=== PATIENT | female | born 1935 | race Caucasian/White ===

== ENCOUNTER 2017-04-05 16:09 | Inpatient (IN) | payer MEDICARE ==
[2017-04-05] MEDS ORDERED: ALBUTEROL NEBULIZED 2.5 MG/3 ML INHALATION STA (16:16)
[2017-04-05] MEDS ORDERED: IPRATROPIUM 0.5 MG/2.5 ML NEBU INHALATION STA (16:17)
--- NOTE | 2017-04-05 17:02 | ED ---
General Adult HPI - General Chief complaint: Shortness of Breath Stated complaint: Diff Breathing Time Seen by Provider: 04/05/17 16:13 Source: patient, EMS, RN notes reviewed Mode of arrival: EMS Limitations: no limitations - History of Present Illness Initial comments: 82-year-old female presents with a one-month history of worsening dyspnea. Patient also reports cough. Denies central chest pain. Patient has history of congestive heart failure, COPD, recurrent pleural effusions, A. fib. Patient has been taking breathing treatments at home with minimal relief. According to EMS, she was on BiPAP which was her neighbors at the time of their arrival. Oxygen saturation in the low 90s. Patient denies fever. Denies new productive cough. Denies central chest pain. - Related Data Home Medications Medication Instructions Recorded Confirmed ALPRAZolam [Xanax] 0.25 mg PO Q6HR 04/05/17 04/05/17 Albuterol Inhaler [Ventolin Hfa 1 - 2 puff INHALATION RT-Q4H PRN 04/05/17 Inhaler] Alpha Lipoic Acid 100 mg PO BID 04/05/17 04/05/17 Ascorbic Acid [Vitamin C] 500 mg PO DAILY 04/05/17 04/05/17 Aspirin 325 mg PO DAILY 04/05/17 04/05/17 Digoxin [Digitek] 125 mcg PO DAILY 04/05/17 04/05/17 Diltiazem HCl [Diltiazem 24Hr ER] 300 mg PO DAILY 04/05/17 04/05/17 Famotidine 20 mg PO DAILY 04/05/17 04/05/17 Fluticasone/Vilanterol [Breo 1 puff INHALATION RT-DAILY 04/05/17 04/05/17 Ellipta 200-25 Mcg INH] Furosemide [Lasix] 40 mg PO BID 04/05/17 04/05/17 Ipratropium-Albuterol Nebulize 3 ml INHALATION RT-Q4H 04/05/17 04/05/17 [Duoneb 0.5 mg-3 mg/3 ml Soln] Lidocaine 5% Patch [Lidoderm] 1 patch TOPICAL DAILY 04/05/17 04/05/17 Metoprolol Tartrate [Lopressor] 25 mg PO BID 04/05/17 04/05/17 Spironolactone [Aldactone] 25 mg PO DAILY 04/05/17 04/05/17 Thyroid,Pork [[place] Thyroid] 60 mg PO DAILY 04/05/17 04/05/17 Allergies Allergy/AdvReac Type Severity Reaction Status Date / Time egg Allergy Unknown Verified 04/05/17 16:32 tetracycline Allergy Unknown Verified 04/05/17 16:32 Review of Systems ROS Statement: Those systems with pertinent positive or pertinent negative responses have been documented in the HPI. ROS Other: All systems not noted in ROS Statement are negative. Past Medical History Past Medical History: Atrial Fibrillation, Cancer, Heart Failure, COPD History of Any Multi-Drug Resistant Organisms: None Reported Past Surgical History: Tubal Ligation Past Psychological History: No Psychological Hx Reported Smoking Status: Former smoker Past Alcohol Use History: None Reported Past Drug Use History: None Reported General Exam Limitations: no limitations General appearance: alert, in distress Head exam: Present: atraumatic, normocephalic Eye exam: Present: normal appearance, PERRL ENT exam: Present: normal exam Neck exam: Present: normal inspection. Absent: tenderness, meningismus Respiratory exam: Present: wheezes, decreased breath sounds (On the right), prolonged expiratory Cardiovascular Exam: Present: regular rate, normal rhythm GI/Abdominal exam: Present: soft. Absent: distended, tenderness Extremities exam: Present: normal inspection, pedal edema (trace) Neurological exam: Present: alert, oriented X3. Absent: motor sensory deficit Psychiatric exam: Present: normal affect, normal mood Skin exam: Present: warm, dry, intact. Absent: cyanosis, diaphoretic Course Vital Signs 04/05/17 04/05/17 04/05/17 16:12 16:20 16:30 Temperature 99.8 F H Pulse Rate 96 90 Respiratory 20 20 Rate Blood Pressure 168/115 O2 Sat by Pulse 93 L Oximetry 04/05/17 04/05/17 16:44 17:58 Temperature Pulse Rate 95 83 Respiratory 20 Rate Blood Pressure 150/67 O2 Sat by Pulse 93 L Oximetry EKG Findings - EKG Comments: EKG Findings:: EKG obtained at 1613 shows a 2 fibrillation with RVR, ventricular rate 106, castration 88, QTC 390, no ST segment elevation. Repeat EKG at 1802 shows atrial fibrillation, ventricular rate 86, QRS duration 86, QTC 368, no ST segment elevation Medical Decision Making - Medical Decision Making 82-year-old female presents with dyspnea and cough. Patient does have wheezing on bilateral lung mcclain, decreased breath sounds in the right. No blood cell count 8.5 which is normal, stable hemoglobin 12.7, troponin negative, BNP is 618. Chest x-ray shows large right-sided pleural effusion as well as right- sided consolidation concerning for neoplasm. Patient does have history of lung cancer. No focal pneumonia in the left lung field, no pulmonary vascular congestion. Patient has had drainage of the pleural effusion as recently as 2 weeks ago. After breathing treatment, she is still quite dyspneic requiring supplemental oxygen. She will be admitted for treatment of her current pleural effusion, COPD. Pulmonology will be placed on consult. Diagnosis: Pleural effusion, lung cancer, COPD - Lab Data Result diagrams: 04/05/17 16:52 04/05/17 16:52 Lab Results 04/05/17 04/05/17 04/05/17 Range/Units 16:52 16:52 16:52 WBC 8.5 (3.8-10.6) k/uL RBC 4.48 (3.80-5.40) m/uL Hgb 12.7 (11.4-16.0) gm/dL Hct 39.8 (34.0-46.0) % MCV 88.9 (80.0-100.0) fL MCH 28.3 (25.0-35.0) pg MCHC 31.9 (31.0-37.0) g/dL RDW 14.8 (11.5-15.5) % Plt Count 282 (150-450) k/uL Neutrophils % 75 % Lymphocytes % 13 % Monocytes % 6 % Eosinophils % 5 % Basophils % 0 % Neutrophils # 6.4 (1.3-7.7) k/uL Lymphocytes # 1.1 (1.0-4.8) k/uL Monocytes # 0.5 (0-1.0) k/uL Eosinophils # 0.4 (0-0.7) k/uL Basophils # 0.0 (0-0.2) k/uL PT (9.0-12.0) sec INR (<1.2) APTT (22.0-30.0) sec Sodium 134 L (137-145) mmol/L Potassium 4.1 (3.5-5.1) mmol/L Chloride 94 L (98-107) mmol/L Carbon Dioxide 35 H (22-30) mmol/L Anion Gap 5 mmol/L BUN 17 (7-17) mg/dL Creatinine 0.81 (0.52-1.04) mg/dL Est GFR (MDRD) Af Amer >60 (>60 ml/min/1.73 sqM) Est GFR (MDRD) Non-Af >60 (>60 ml/min/1.73 sqM) Glucose 132 H (74-99) mg/dL Calcium 9.6 (8.4-10.2) mg/dL Magnesium 2.0 (1.6-2.3) mg/dL Total Bilirubin 0.5 (0.2-1.3) mg/dL AST 20 (14-36) U/L ALT 31 (9-52) U/L Alkaline Phosphatase 71 (38-126) U/L Total Creatine Kinase <20 L (30-135) U/L CK-MB (CK-2) 0.6 (0.0-2.4) ng/mL CK-MB (CK-2) Rel Index Troponin I 0.017 (0.000-0.034) ng/mL NT-Pro-B Natriuret Pep pg/mL Total Protein 5.7 L (6.3-8.2) g/dL Albumin 3.1 L (3.5-5.0) g/dL 04/05/17 04/05/17 Range/Units 16:52 16:52 WBC (3.8-10.6) k/uL RBC (3.80-5.40) m/uL Hgb (11.4-16.0) gm/dL Hct (34.0-46.0) % MCV (80.0-100.0) fL MCH (25.0-35.0) pg MCHC (31.0-37.0) g/dL RDW (11.5-15.5) % Plt Count (150-450) k/uL Neutrophils % % Lymphocytes % % Monocytes % % Eosinophils % % Basophils % % Neutrophils # (1.3-7.7) k/uL Lymphocytes # (1.0-4.8) k/uL Monocytes # (0-1.0) k/uL Eosinophils # (0-0.7) k/uL Basophils # (0-0.2) k/uL PT 9.8 (9.0-12.0) sec INR 1.0 (<1.2) APTT 21.5 L (22.0-30.0) sec Sodium (137-145) mmol/L Potassium (3.5-5.1) mmol/L Chloride (98-107) mmol/L Carbon Dioxide (22-30) mmol/L Anion Gap mmol/L BUN (7-17) mg/dL Creatinine (0.52-1.04) mg/dL Est GFR (MDRD) Af Amer (>60 ml/min/1.73 sqM) Est GFR (MDRD) Non-Af (>60 ml/min/1.73 sqM) Glucose (74-99) mg/dL Calcium (8.4-10.2) mg/dL Magnesium (1.6-2.3) mg/dL Total Bilirubin (0.2-1.3) mg/dL AST (14-36) U/L ALT (9-52) U/L Alkaline Phosphatase (38-126) U/L Total Creatine Kinase (30-135) U/L CK-MB (CK-2) (0.0-2.4) ng/mL CK-MB (CK-2) Rel Index Troponin I (0.000-0.034) ng/mL NT-Pro-B Natriuret Pep 618 pg/mL Total Protein (6.3-8.2) g/dL Albumin (3.5-5.0) g/dL Disposition Clinical Impression: Pleural effusion, Acute exacerbation of chronic obstructive airways disease Disposition: ADMITTED IP TO THIS [facility] Condition: Stable Referrals: Vernell Plummer MD [Primary Care Provider] - 1-2 days Decision to Admit Reason: Admit from EC Decision Date: 04/05/17 Decision Time: 18:38
[2017-04-05 17:05] LABS: Basophils % (A) 0 %; CH 28.9; CHCM 32.8; Eosinophils # (A) 0.4 k/uL (0-0.7); Eosinophils % (A) 5 %; HCT 39.8 % (34.0-46.0); HDW 2.99; HGB 12.7 gm/dL (11.4-16.0); Luc % (Auto) 1; Lymphocytes # (A) 1.1 k/uL (1.0-4.8); Lymphocytes % (A) 13 %; MCH 28.3 pg (25.0-35.0); MCHC 31.9 g/dL (31.0-37.0); MCV 88.9 fL (80.0-100.0); Mean Platelet Volume 7.2; Monocytes # (A) 0.5 k/uL (0-1.0); Monocytes % (A) 6 %; Neutrophils # (A) 6.4 k/uL (1.3-7.7); Neutrophils % (A) 75 %; RBC 4.48 m/uL (3.80-5.40); RDW 14.8 % (11.5-15.5); WBC 8.5 k/uL (3.8-10.6); WBC (Perox) 9.25
[2017-04-05 17:12] LABS: ALT 31 U/L (9-52); AST 20 U/L (14-36); Alkaline Phosphatase 71 U/L (38-126); Anion Gap 5 mmol/L; Blood Urea Nitrogen 17 mg/dL (7-17); Calcium 9.6 mg/dL (8.4-10.2); Carbon Dioxide 35 mmol/L (22-30); Chloride 94 mmol/L (98-107); Glucose 132 mg/dL (74-99); Non-African American GFR(MDRD) >60 (>60 ml/min/1.73 sqM); Potassium 4.1 mmol/L (3.5-5.1); Sodium 134 mmol/L (137-145); Total Bilirubin 0.5 mg/dL (0.2-1.3); Total Protein 5.7 g/dL (6.3-8.2)
--- NOTE | 2017-04-05 17:18 | XR ---
EXAMINATION TYPE: XR chest 2V DATE OF EXAM: 04/05/2017 COMPARISON: 08/22/2011 HISTORY: Shortness of breath with known right lung cancer. TECHNIQUE: Frontal and lateral views of the chest are obtained. FINDINGS: There is a moderate layering right pleural effusion, right perihilar enlargement, right ba silar opacity and right apical opacity. Right apical opacity is thought to represent the patient's un derlying known lung cancer. Additionally there appears to be postobstructive at least segmental right upper lobe collapse on the lateral image. Left lung remains clear other than scattered areas of line ar peripheral subsegmental atelectasis. Cardiomediastinal silhouette is obscured but overall nonenlar ged. Patient's chin obscures the lung apices. Evaluation for pneumothorax is limited. IMPRESSION: 1. New moderate right pleural effusion and right basilar airspace disease that may represent atelecta sis or pneumonia in the appropriate clinical setting. 2. Right upper lobe masslike consolidation favored to represent the patient's underlying known neopla sm with evidence of postobstructive at least subsegmental atelectasis. 3. Right hilar prominence likely related to adenopathy.
[2017-04-05 17:21] LABS: Creatine Kinase <20 U/L (30-135)
[2017-04-05 17:25] LABS: Prothrombin Time 9.8 sec (9.0-12.0)
[2017-04-05 17:26] LABS: Partial Thromboplastin Time 21.5 sec (22.0-30.0)
[2017-04-05 17:34] LABS: Creatine Kinase MB 0.6 ng/mL (0.0-2.4); Troponin I 0.017 ng/mL (0.000-0.034)
[2017-04-05] MEDS ORDERED: MORPHINE SULFATE 4 MG/ML SYRINGE IVP STA (18:32)
[2017-04-05] MEDS ORDERED: NALOXONE 0.4 MG/ML 1 ML VIAL IV PRN ×2 (18:33→21:08)
[2017-04-05 20:07] VITALS: BMI 36.2
[2017-04-05] MEDS ORDERED: ONDANSETRON 4 MG/2 ML VIAL IVP PRN (21:08)
[2017-04-05] MEDS ORDERED: ACETAMINOPHEN TAB 325 MG TAB PO PRN (21:08)
--- NOTE | 2017-04-05 21:40 | P.HPIM ---
History of Present Illness H&P Date: 04/05/17 Chief Complaint: Shortness of breath 82-year-old female presents with progressively worsening dyspnea. Last December she was told she had a ''spot'' on her lung, the suspicious spot was not investigated with any biopsy at that time because patient elected not to undergo any chemotherapy or radiation treatment. She normally gets her medical care at [facility] in [place]. Last December she had a procedure to drain some fluid off of her right chest. She tried to make an appointment with Dr. Landaverde but he did not have any availability for new patients until next month and shortness of breath continued to get worse and that is why she came into the emergency department. The shortness of breath is associated with right upper chest pain that radiates to the right side of her neck. The pain is sharp in quality, severe 10 out of 10 in severity, it gets worse with deep breathing. Patient has history of congestive heart failure, COPD, and normally she is on 3 L of home oxygen 09/12. Patient has been taking breathing treatments at home with minimal relief. She also at baseline uses BiPAP at night. Patient denies fever or chills. She has some nausea but no vomiting. No recent sick contacts or flulike symptoms. Denies new productive cough. Denies central chest pain. In the ER her oxygen saturations were in the low 90s. Review of Systems 12 point ROS performed, negative except HPI. Past Medical History Past Medical History: Atrial Fibrillation, Cancer, Heart Failure, COPD, Thyroid Disorder History of Any Multi-Drug Resistant Organisms: None Reported Past Surgical History: Tubal Ligation Past Anesthesia/Blood Transfusion Reactions: No Reported Reaction Past Psychological History: No Psychological Hx Reported Smoking Status: Former smoker Past Alcohol Use History: None Reported Past Drug Use History: None Reported - Past Family History Father Family Medical History: Myocardial Infarction (MS) Additional Family Medical History / Comment(s): emphysema Mother Family Medical History: Congestive Heart Failure (CHF), CVA/TIA Brother(s) Family Medical History: Diabetes Mellitus Medications and Allergies Home Medications Medication Instructions Recorded Confirmed Type ALPRAZolam [Xanax] 0.25 mg PO Q6HR 04/05/17 04/05/17 History Albuterol Inhaler [Ventolin Hfa 1 - 2 puff INHALATION RT-Q4H PRN 04/05/17 History Inhaler] Alpha Lipoic Acid 100 mg PO BID 04/05/17 04/05/17 History Ascorbic Acid [Vitamin C] 500 mg PO DAILY 04/05/17 04/05/17 History Aspirin 325 mg PO DAILY 04/05/17 04/05/17 History Digoxin [Digitek] 125 mcg PO DAILY 04/05/17 04/05/17 History Diltiazem HCl [Diltiazem 24Hr ER] 300 mg PO DAILY 04/05/17 04/05/17 History Famotidine 20 mg PO DAILY 04/05/17 04/05/17 History Fluticasone/Vilanterol [Breo 1 puff INHALATION RT-DAILY 04/05/17 04/05/17 History Ellipta 200-25 Mcg INH] Furosemide [Lasix] 40 mg PO BID 04/05/17 04/05/17 History Ipratropium-Albuterol Nebulize 3 ml INHALATION RT-Q4H 04/05/17 04/05/17 History [Duoneb 0.5 mg-3 mg/3 ml Soln] Lidocaine 5% Patch [Lidoderm] 1 patch TOPICAL DAILY 04/05/17 04/05/17 History Metoprolol Tartrate [Lopressor] 25 mg PO BID 04/05/17 04/05/17 History Spironolactone [Aldactone] 25 mg PO DAILY 04/05/17 04/05/17 History Thyroid,Pork [[place] Thyroid] 60 mg PO DAILY 04/05/17 04/05/17 History Allergies Allergy/AdvReac Type Severity Reaction Status Date / Time egg Allergy Unknown Verified 04/05/17 16:32 tetracycline Allergy Unknown Verified 04/05/17 16:32 Physical Exam Vitals: Vital Signs Temp Pulse Resp BP Pulse Ox 04/05/17 19:29 98.7 F 85 18 148/80 95 04/05/17 19:07 98.7 F 82 20 140/60 95 04/05/17 17:58 83 20 150/67 93 L 04/05/17 16:44 95 04/05/17 16:30 20 04/05/17 16:20 90 04/05/17 16:12 99.8 F H 96 20 168/115 93 L Intake and Output 04/05/17 04/05/17 04/05/17 06:59 14:59 22:59 Other: Weight 87.09 kg Patient Weight 04/06/17 06:59 Weight 87.09 kg Constitutional: Moderate respiratory distress, unable to finish full sentences, conversant, pleasant Eyes:Anicteric sclerae, moist conjunctiva, no lid-lag, PERRLA, ENMT: Oropharynx clear, no erythema, exudates Neck: Supple, FROM, no masses, or JVD, No carotid bruits, No thyromegaly Lungs: Diminished breath sounds on the right lower chest, dull to percussion on the right lower chest, increased respiratory effort, + accessory muscle use Cardiovascular: Irregularly irregular, normal rate, No murmurs, gallops, or rubs , No peripheral edema Abdominal: Soft, Nontender, no guarding, rebound or rigidity, Normoactive bowel sounds, No hepatomegaly, No splenomegaly, No palpable mass Skin: Normal temperature, tone, texture, turgor, no induration, No subcutaneous nodules, No rash, lesions, No ulcers Extremities: No digital cyanosis, No clubbing, Pedal pulses intact and symmetrical, Radial pulses intact and symmetrical, No calf tenderness Psychiatric: Alert and oriented to person, place and time, appropriate affect, intact judgement Neuro: Muscles Strength 5/5 in all 4 extremities, Sensation to light touch grossly present throughout, Cranial nerves II-XII grossly intact, no focal sensory deficits Results CBC & Chem 7: 04/05/17 16:52 04/05/17 16:52 Labs: Abnormal Lab Results - Last 24 Hours (Table) 04/05/17 04/05/17 04/05/17 Range/Units 16:52 16:52 16:52 APTT 21.5 L (22.0-30.0) sec Sodium 134 L (137-145) mmol/L Chloride 94 L (98-107) mmol/L Carbon Dioxide 35 H (22-30) mmol/L Glucose 132 H (74-99) mg/dL Total Creatine Kinase <20 L (30-135) U/L Total Protein 5.7 L (6.3-8.2) g/dL Albumin 3.1 L (3.5-5.0) g/dL Thrombosis Risk Factor Assmnt - Choose All That Apply Each Factor Represents 1 point: Obesity (BMI >25) Other Risk Factors: Yes Each Risk Factor Represents 3 Points: Age 75 years or older Thrombosis Risk Factor Assessment Total Risk Factor Score: 4 Thrombosis Risk Factor Assessment Level: Moderate Risk Assessment and Plan Plan: #1 Acute hypoxic respiratory failure: Likely because of postobstructive pneumonia, associated with right-sided pleural effusion and possibly acute exacerbation of chronic obstructive pulmonary disease BiPAP DuoNeb every 4hrs Solu-Medrol 40mg every 6 IV Start antibiotic treatment ceftriaxone and azithromycin Check pro-calcitonin, blood culturesX2 before antibiotics administration. Labs reviewed Discussed with respiratory therapist Consult pulmonary Obtain records from [facility] in the morning #2 Chest pain: Likely pleuritic secondary to the above findings No evidence of acute coronary event per the troponin and EKG Morphine 2 mg IV every 4 hours when necessary #3 Benign hypertension, congestive heart failure, persistent atrial fibrillation , hypothyroidism: Stable Continue medications #4 DVT prophylaxis: Lovenox subcu and early mobilization
[2017-04-05] MEDS: cefTRIAXone IN SWFI 1,000 MG/10 ML SYRINGE IVP SCH (22:07)
[2017-04-05] MEDS: AZITHROMYCIN 500 MG in SODIUM CHLORIDE 0.9% 250 ML IVPB SCH (22:08)
[2017-04-05] MEDS: ENOXAPARIN 40 MG/0.4 ML SYRINGE SQ SCH (22:15)
[2017-04-05] MEDS: MORPHINE SULFATE 4 MG/ML SYRINGE IV PRN (22:15)
[2017-04-05 22:17] LABS: Anion Gap 6 mmol/L; Blood Urea Nitrogen 19 mg/dL (7-17); Calcium 9.4 mg/dL (8.4-10.2); Carbon Dioxide 33 mmol/L (22-30); Chloride 94 mmol/L (98-107); Glucose 131 mg/dL (74-99); Non-African American GFR(MDRD) >60 (>60 ml/min/1.73 sqM); Potassium 4.4 mmol/L (3.5-5.1); Sodium 133 mmol/L (137-145)
[2017-04-05] MEDS: IPRATROPIUM-ALBUTEROL 3 ML NEB INHALATION SCH (23:23)
[2017-04-06] MEDS: methylPREDNISolone SOD SUCCI 40 MG/ML 1 ML VIAL IV SCH ×5 (00:28→23:34)
[2017-04-06] MEDS: ALPRAZolam 0.25 MG TAB PO SCH ×5 (01:02→23:34)
[2017-04-06] MEDS: MORPHINE SULFATE 4 MG/ML SYRINGE IV PRN ×2 (02:52→11:12)
[2017-04-06] MEDS: IPRATROPIUM-ALBUTEROL 3 ML NEB INHALATION SCH ×5 (03:41→19:59)
[2017-04-06] MEDS: THYROID, PORK 30 MG TAB PO SCH (06:04)
[2017-04-06 06:26] LABS: Basophils % (A) 0 %; CH 29.2; CHCM 32.8; Eosinophils # (A) 0.1 k/uL (0-0.7); Eosinophils % (A) 1 %; HCT 38.5 % (34.0-46.0); HDW 3.28; HGB 12.3 gm/dL (11.4-16.0); Luc # (Auto) 0.07; Luc % (Auto) 1; Lymphocytes # (A) 0.5 k/uL (1.0-4.8); Lymphocytes % (A) 7 %; MCH 28.6 pg (25.0-35.0); MCHC 31.9 g/dL (31.0-37.0); MCV 89.6 fL (80.0-100.0); Mean Platelet Volume 6.9; Monocytes # (A) 0.1 k/uL (0-1.0); Monocytes % (A) 2 %; Neutrophils % (A) 89 %; RBC 4.29 m/uL (3.80-5.40); RDW 13.9 % (11.5-15.5); WBC 6.7 k/uL (3.8-10.6); WBC (Perox) 7.26
[2017-04-06 06:35] LABS: ALT 31 U/L (9-52); AST 18 U/L (14-36); Alkaline Phosphatase 71 U/L (38-126); Anion Gap 5 mmol/L; Blood Urea Nitrogen 19 mg/dL (7-17); Calcium 9.2 mg/dL (8.4-10.2); Carbon Dioxide 32 mmol/L (22-30); Chloride 95 mmol/L (98-107); Digoxin 0.9 ng/mL; Glucose 170 mg/dL (74-99); Magnesium 1.9 mg/dL (1.6-2.3); Non-African American GFR(MDRD) >60 (>60 ml/min/1.73 sqM); Phosphorous 3.4 mg/dL (2.5-4.5); Potassium 4.4 mmol/L (3.5-5.1); Sodium 132 mmol/L (137-145); Total Bilirubin 0.4 mg/dL (0.2-1.3); Total Protein 5.3 g/dL (6.3-8.2)
[2017-04-06] MEDS: SYMBICORT 160-4.5 MCG INHALER INHALATION SCH ×2 (08:29→19:59)
--- NOTE | 2017-04-06 08:31 | P.PN ---
Subjective Progress Note Date: 04/06/17 Principal diagnosis: shortness of breath 82 year old female that presented with worsening symptoms of shortness of breath. Patient has known history of lung cancer and patient chose not to have chemotherapy treatment. Patient had previously had thoracentesis. At had discussed with her emergency department manager Dr. Wall to have what she describes like a pleural VAC. Objective - Vital Signs Vital signs: Vital Signs Temp 97.8 F 04/06/17 03:42 Pulse 88 04/06/17 03:50 Resp 20 04/06/17 03:44 BP 134/64 04/06/17 03:42 Pulse Ox 94 L 04/06/17 03:42 Intake & Output 04/05/17 04/06/17 04/06/17 18:59 06:59 18:59 Intake Total 340 Output Total 400 Balance -60 Weight 87.09 kg 87.9 kg Intake: Intake, IV Titration 140 Amount Azithromycin 500 mg In 140 Sodium Chloride 0.9% 250 ml @ 125 mls/hr IVPB HS ESTEFANY Rx#:[id number] Oral 200 Output: Urine 400 Other: Voiding Method Bedside Commode - Exam gen:alert and oriented lungs:decreased air entry on rt side heart:s1s2 abdomen:soft and depressible,non tender ext:no edema - Labs CBC & Chem 7: 04/06/17 05:47 04/06/17 05:47 Labs: Abnormal Lab Results - Last 24 Hours (Table) 04/05/17 04/05/17 04/05/17 Range/Units 16:52 16:52 16:52 Lymphocytes # (1.0-4.8) k/uL APTT 21.5 L (22.0-30.0) sec Sodium 134 L (137-145) mmol/L Chloride 94 L (98-107) mmol/L Carbon Dioxide 35 H (22-30) mmol/L BUN (7-17) mg/dL Glucose 132 H (74-99) mg/dL Total Creatine Kinase <20 L (30-135) U/L Total Protein 5.7 L (6.3-8.2) g/dL Albumin 3.1 L (3.5-5.0) g/dL 04/05/17 04/06/17 04/06/17 Range/Units 21:46 05:47 05:47 Lymphocytes # 0.5 L (1.0-4.8) k/uL APTT (22.0-30.0) sec Sodium 133 L 132 L (137-145) mmol/L Chloride 94 L 95 L (98-107) mmol/L Carbon Dioxide 33 H 32 H (22-30) mmol/L BUN 19 H 19 H (7-17) mg/dL Glucose 131 H 170 H (74-99) mg/dL Total Creatine Kinase (30-135) U/L Total Protein 5.3 L (6.3-8.2) g/dL Albumin 3.0 L (3.5-5.0) g/dL Assessment and Plan (1) Respiratory failure Narrative/Plan: deteriorarated last night on bipap now will need close monitoring on selective care Current Visit: Yes Status: Acute Code(s): J96.90 - RESPIRATORY FAILURE, UNSP , UNSP W HYPOXIA OR HYPERCAPNIA SNOMED Code(s): 717232659 (2) Lung cancer Narrative/Plan: pt had refused treatment with chemo I briefly discussed hospice care with her as a consideration at some point(she will think about it). This will need to be readdressed at some point during this admission. Current Visit: Yes Status: Acute Code(s): C34.90 - MALIGNANT NEOPLASM OF UNSP PART OF UNSP BRONCHUS OR LUNG SNOMED Code(s): 236990253 (3) Pleural effusion Narrative/Plan: will need thorascentesis and pleura vac Dr Wall to eval patient Current Visit: Yes Status: Acute Code(s): J90 - PLEURAL EFFUSION, NOT ELSEWHERE CLASSIFIED SNOMED Code(s): 55391156 (4) Atrial fibrillation Narrative/Plan: continue cardizem and metoprolol rate controlled Current Visit: Yes Status: Acute Code(s): I48.91 - UNSPECIFIED ATRIAL FIBRILLATION SNOMED Code(s): 64811726 (5) Heart failure Current Visit: Yes Status: Acute Code(s): I50.9 - HEART FAILURE, UNSPECIFIED SNOMED Code(s): 74245158 (6) COPD (chronic obstructive pulmonary disease) Narrative/Plan: continue duonebs Current Visit: Yes Status: Acute Code(s): J44.9 - CHRONIC OBSTRUCTIVE PULMONARY DISEASE, UNSPECIFIED SNOMED Code(s): 95629189 (7) Hypothyroid Narrative/Plan: continue synthroid check thyroid profile Current Visit: Yes Status: Acute Code(s): E03.9 - HYPOTHYROIDISM, UNSPECIFIED SNOMED Code(s): 03886660
[2017-04-06] MEDS ORDERED: ALPHA LIPOIC ACID 100 MG PO SCH (09:00)
[2017-04-06] MEDS: FUROSEMIDE 40 MG TAB PO SCH ×2 (09:17→15:31)
[2017-04-06] MEDS: ASPIRIN 325 MG TAB PO SCH (09:17)
[2017-04-06] MEDS: DIGOXIN 125 MCG TAB PO SCH (09:17)
[2017-04-06] MEDS: FAMOTIDINE 20 MG TAB PO SCH (09:17)
[2017-04-06] MEDS: DILTIAZEM CD 300 MG CAP.ER.24H PO SCH (09:17)
[2017-04-06] MEDS: METOPROLOL TARTRATE 25 MG TAB PO SCH ×2 (09:18→20:24)
[2017-04-06] MEDS: SPIRONOLACTONE 25 MG TAB PO SCH (09:18)
[2017-04-06] MEDS: LIDOCAINE 5% PATCH TOPICAL SCH (09:18)
[2017-04-06] MEDS: cefTRIAXone IN SWFI 1,000 MG/10 ML SYRINGE IVP SCH (11:09)
--- NOTE | 2017-04-06 11:55 | P.CNPUL ---
History of Present Illness Consult date: 04/06/17 Reason for consult: dyspnea, hypoxemia, pleural effusion, abnormal CXR/CT, other Chief complaint: Shortness of breath History of present illness: Consult dated 04/06/2017 82-year-old female presents with complaints of a month's worth of increasing shortness of breath. Also coughing. Not producing much or any phlegm. No chest pain or chest discomfort. Does have a history of underlying CHF and apparently also suffers from COPD. She apparently has a history of recurrent pleural effusions. In addition, has a history of atrial fibrillation. Has been using breathing treatments at home without much benefit. She apparently was placed on BiPAP which was her neighbors device. Her saturations when EMS arrived in the low 90s. No fever no chills. No nausea vomiting or diarrhea. Chest x-ray shows a large right-sided effusion. She was admitted with a diagnosis of right-sided pleural effusion failure. Also she was admitted with a diagnosis of COPD exacerbation. Review of Systems A 12 point review of system is positive for primarily shortness of breath. His been going on for at least 3-4 weeks. Getting progressively worse. Minimal cough. No phlegm. No fever no chills. No nausea vomiting or diarrhea. No chest pain. Past Medical History Past Medical History: Atrial Fibrillation, Cancer, Heart Failure, COPD, Thyroid Disorder History of Any Multi-Drug Resistant Organisms: None Reported Past Surgical History: Tubal Ligation Past Anesthesia/Blood Transfusion Reactions: No Reported Reaction Past Psychological History: No Psychological Hx Reported Smoking Status: Former smoker Past Alcohol Use History: None Reported Past Drug Use History: None Reported - Past Family History Father Family Medical History: Myocardial Infarction (ID) Additional Family Medical History / Comment(s): emphysema Mother Family Medical History: Congestive Heart Failure (CHF), CVA/TIA Brother(s) Family Medical History: Diabetes Mellitus Medications and Allergies Home Medications Medication Instructions Recorded Confirmed Type ALPRAZolam [Xanax] 0.25 mg PO Q6HR 04/05/17 04/05/17 History Albuterol Inhaler [Ventolin Hfa 1 - 2 puff INHALATION RT-Q4H PRN 04/05/17 History Inhaler] Alpha Lipoic Acid 100 mg PO BID 04/05/17 04/05/17 History Ascorbic Acid [Vitamin C] 500 mg PO DAILY 04/05/17 04/05/17 History Aspirin 325 mg PO DAILY 04/05/17 04/05/17 History Digoxin [Digitek] 125 mcg PO DAILY 04/05/17 04/05/17 History Diltiazem HCl [Diltiazem 24Hr ER] 300 mg PO DAILY 04/05/17 04/05/17 History Famotidine 20 mg PO DAILY 04/05/17 04/05/17 History Fluticasone/Vilanterol [Breo 1 puff INHALATION RT-DAILY 04/05/17 04/05/17 History Ellipta 200-25 Mcg INH] Furosemide [Lasix] 40 mg PO BID 04/05/17 04/05/17 History Ipratropium-Albuterol Nebulize 3 ml INHALATION RT-Q4H 04/05/17 04/05/17 History [Duoneb 0.5 mg-3 mg/3 ml Soln] Lidocaine 5% Patch [Lidoderm] 1 patch TOPICAL DAILY 04/05/17 04/05/17 History Metoprolol Tartrate [Lopressor] 25 mg PO BID 04/05/17 04/05/17 History Spironolactone [Aldactone] 25 mg PO DAILY 04/05/17 04/05/17 History Thyroid,Pork [[place] Thyroid] 60 mg PO DAILY 04/05/17 04/05/17 History Allergies Allergy/AdvReac Type Severity Reaction Status Date / Time egg Allergy Unknown Verified 04/05/17 16:32 tetracycline Allergy Unknown Verified 04/05/17 16:32 Physical Exam Osteopathic Statement: *. No significant issues noted on an osteopathic structural exam other than those noted in the History and Physical/Consult. Vitals: Vital Signs Temp Pulse Pulse Pulse Resp BP BP 04/06/17 11:48 80 04/06/17 11:23 76 04/06/17 08:37 84 04/06/17 08:28 80 04/06/17 08:00 98.4 F 103 H 20 04/06/17 03:50 88 04/06/17 03:44 86 20 04/06/17 03:42 97.8 F 86 20 04/06/17 03:41 88 04/06/17 00:00 98.7 F 88 22 04/05/17 23:35 88 04/05/17 23:27 84 04/05/17 20:00 98 F 90 23 131/53 04/05/17 19:29 98.7 F 85 18 148/80 04/05/17 19:07 98.7 F 82 20 140/60 04/05/17 17:58 83 20 150/67 04/05/17 16:44 95 04/05/17 16:30 20 04/05/17 16:20 90 04/05/17 16:12 99.8 F H 96 20 168/115 BP Pulse Ox 04/06/17 11:48 04/06/17 11:23 04/06/17 08:37 04/06/17 08:28 04/06/17 08:00 131/61 92 L 04/06/17 03:50 04/06/17 03:44 04/06/17 03:42 134/64 94 L 04/06/17 03:41 04/06/17 00:00 133/64 94 L 04/05/17 23:35 04/05/17 23:27 04/05/17 20:00 94 L 04/05/17 19:29 95 04/05/17 19:07 95 04/05/17 17:58 93 L 04/05/17 16:44 04/05/17 16:30 04/05/17 16:20 04/05/17 16:12 93 L Intake and Output 04/05/17 04/06/17 04/06/17 22:59 06:59 14:59 Intake Total 140 200 Output Total 400 0 0 Balance -260 200 0 Intake: Intake, IV Titration 140 Amount Azithromycin 500 mg In 140 Sodium Chloride 0.9% 250 ml @ 125 mls/hr IVPB [facility] Rx#:[id number] Oral 200 Output: Urine 400 0 0 Other: Voiding Method Bedside Commode Bedside Commode Bedside Commode Weight 87.09 kg 87.9 kg No acute distress, oriented 3. HEENT examination is grossly unremarkable. Mucous membranes are moist. No oral lesions. Neck supple. Full range of motion. No adenopathy thyromegaly or neck vein distention. Cardiovascular examination reveals a regular rhythm and rate. Appears to be in atrial fibrillation. Soft systolic murmurs noted. S1-S2 normal. No distinct S3 or S4. Lungs reveal clear diminished breath sounds particularly at the right base. Dullness of the right base. A few scattered crackles. No wheezes. Abdomen soft bowel sounds are heard. No masses or tenderness. Extremities are intact. No cyanosis or clubbing. Slight edema noted. Skin is without rash or lesion. Neurologic examination is brief but nonfocal. Results - Laboratory Findings CBC and BMP: 04/06/17 05:47 04/06/17 05:47 PT/INR, D-dimer PT 9.8 sec (9.0-12.0) 04/05/17 16:52 INR 1.0 (<1.2) 04/05/17 16:52 Abnormal lab findings: Abnormal Labs 04/05/17 04/05/17 04/05/17 16:52 16:52 16:52 Lymphocytes # APTT 21.5 L Sodium 134 L Chloride 94 L Carbon Dioxide 35 H BUN Glucose 132 H Total Creatine Kinase <20 L Total Protein 5.7 L Albumin 3.1 L 04/05/17 04/06/17 04/06/17 21:46 05:47 05:47 Lymphocytes # 0.5 L APTT Sodium 133 L 132 L Chloride 94 L 95 L Carbon Dioxide 33 H 32 H BUN 19 H 19 H Glucose 131 H 170 H Total Creatine Kinase Total Protein 5.3 L Albumin 3.0 L - Diagnostic Findings Chest x-ray: image reviewed (Chest x-ray labs and medications are all reviewed.) Assessment and Plan (1) Acute exacerbation of chronic obstructive airways disease Current Visit: Yes Status: Acute Code(s): J44.1 - CHRONIC OBSTRUCTIVE PULMONARY DISEASE W (ACUTE) EXACERBATION SNOMED Code(s): 460158312 (2) Atrial fibrillation Current Visit: Yes Status: Acute Code(s): I48.91 - UNSPECIFIED ATRIAL FIBRILLATION SNOMED Code(s): 42071717 (3) COPD (chronic obstructive pulmonary disease) Current Visit: Yes Status: Acute Code(s): J44.9 - CHRONIC OBSTRUCTIVE PULMONARY DISEASE, UNSPECIFIED SNOMED Code(s): 18955766 (4) Heart failure Current Visit: Yes Status: Acute Code(s): I50.9 - HEART FAILURE, UNSPECIFIED SNOMED Code(s): 73948419 (5) Hypothyroid Current Visit: Yes Status: Acute Code(s): E03.9 - HYPOTHYROIDISM, UNSPECIFIED SNOMED Code(s): 28659899 (6) Lung cancer Current Visit: Yes Status: Acute Code(s): C34.90 - MALIGNANT NEOPLASM OF UNSP PART OF UNSP BRONCHUS OR LUNG SNOMED Code(s): 095008477 (7) Pleural effusion Current Visit: Yes Status: Acute Code(s): J90 - PLEURAL EFFUSION, NOT ELSEWHERE CLASSIFIED SNOMED Code(s): 48889346 (8) Respiratory failure Current Visit: Yes Status: Acute Code(s): J96.90 - RESPIRATORY FAILURE, UNSP , UNSP W HYPOXIA OR HYPERCAPNIA SNOMED Code(s): 078844774 Plan: Plan dated 04/06/2017 The patient had shortness of breath which is likely multifactorial in part related to underlying heart failure with large right pleural effusion COPD exacerbation as well as lung cancer and possible malignant effusion. The patient also had atrial fibrillation with RVR when she first presented to the emergency department. For all of these reasons, this explains the patient's shortness of breath. The patient will need a ultrasound of the right chest. Will probably benefit from a thoracentesis to be performed. We'll get that ordered. Additional recommendations suggestions are forthcoming. Labs and medications are reviewed. Time with Patient: Greater than 30
[2017-04-06] MEDS: ASCORBIC ACID 500 MG TAB PO SCH (11:56)
--- NOTE | 2017-04-06 18:07 | P.GSCN ---
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 Patient was in the [facility] in January and was intubated for a while, underwent right-sided thoracocentesis on 2016 that reportedly was positive for adenocarcinoma associated with several right-sided lung masses on CAT scan. Patient was admitted at this point with worsening shortness of breath over several weeks. She was seen by Dr. Uribe as an outpatient and a Pleurx catheter was recommended but she did not follow up. We are currently consulted for potential right Pleurx catheter insertion. Patient states that she is feeling better than when she was admitted. Review of Systems - Constitutional Reports chronic pain - Cardiovascular Reports dyspnea on exertion, Reports edema, Reports irregular heart beat - Respiratory Reports congestion, Reports cough, Reports dyspnea Past Medical History Past Medical History: Atrial Fibrillation, Cancer, Heart Failure, COPD, Thyroid Disorder History of Any Multi-Drug Resistant Organisms: None Reported Past Surgical History: Tubal Ligation Past Anesthesia/Blood Transfusion Reactions: No Reported Reaction Past Psychological History: No Psychological Hx Reported Smoking Status: Former smoker Past Alcohol Use History: None Reported Past Drug Use History: None Reported - Past Family History Father Family Medical History: Myocardial Infarction (OR) Additional Family Medical History / Comment(s): emphysema Mother Family Medical History: Congestive Heart Failure (CHF), CVA/TIA Brother(s) Family Medical History: Diabetes Mellitus Medications and Allergies Home Medications Medication Instructions Recorded Confirmed Type ALPRAZolam [Xanax] 0.25 mg PO Q6HR 04/05/17 04/05/17 History Albuterol Inhaler [Ventolin Hfa 1 - 2 puff INHALATION RT-Q4H PRN 04/05/17 History Inhaler] Alpha Lipoic Acid 100 mg PO BID 04/05/17 04/05/17 History Ascorbic Acid [Vitamin C] 500 mg PO DAILY 04/05/17 04/05/17 History Aspirin 325 mg PO DAILY 04/05/17 04/05/17 History Digoxin [Digitek] 125 mcg PO DAILY 04/05/17 04/05/17 History Diltiazem HCl [Diltiazem 24Hr ER] 300 mg PO DAILY 04/05/17 04/05/17 History Famotidine 20 mg PO DAILY 04/05/17 04/05/17 History Fluticasone/Vilanterol [Breo 1 puff INHALATION RT-DAILY 04/05/17 04/05/17 History Ellipta 200-25 Mcg INH] Furosemide [Lasix] 40 mg PO BID 04/05/17 04/05/17 History Ipratropium-Albuterol Nebulize 3 ml INHALATION RT-Q4H 04/05/17 04/05/17 History [Duoneb 0.5 mg-3 mg/3 ml Soln] Lidocaine 5% Patch [Lidoderm] 1 patch TOPICAL DAILY 04/05/17 04/05/17 History Metoprolol Tartrate [Lopressor] 25 mg PO BID 04/05/17 04/05/17 History Spironolactone [Aldactone] 25 mg PO DAILY 04/05/17 04/05/17 History Thyroid,Pork [[place] Thyroid] 60 mg PO DAILY 04/05/17 04/05/17 History Allergies Allergy/AdvReac Type Severity Reaction Status Date / Time egg Allergy Unknown Verified 04/05/17 16:32 tetracycline Allergy Unknown Verified 04/05/17 16:32 Surgical - Exam Vital Signs Temp Pulse Resp BP Pulse Ox 99.8 F H 96 20 168/115 93 L 04/05/17 16:12 04/05/17 16:12 04/05/17 16:12 04/05/17 16:12 04/05/17 16:12 - General moderate distress, obese - Respiratory right: dullness, absent breath sounds - Cardiovascular Rhythm: irregularly irregular - Abdomen Abdomen: soft, non tender - Genitourinary Deferred - Rectum Deferred Results - Labs 04/06/17 05:47 04/06/17 05:47 Abnormal Lab Results - Last 24 Hours (Table) 04/05/17 04/06/17 04/06/17 Range/Units 21:46 05:47 05:47 Lymphocytes # 0.5 L (1.0-4.8) k/uL Sodium 133 L 132 L (137-145) mmol/L Chloride 94 L 95 L (98-107) mmol/L Carbon Dioxide 33 H 32 H (22-30) mmol/L BUN 19 H 19 H (7-17) mg/dL Glucose 131 H 170 H (74-99) mg/dL Total Protein 5.3 L (6.3-8.2) g/dL Albumin 3.0 L (3.5-5.0) g/dL Diabetes panel 04/05/17 04/06/17 Range/Units 21:46 05:47 Sodium 133 L 132 L (137-145) mmol/L Potassium 4.4 4.4 (3.5-5.1) mmol/L Chloride 94 L 95 L (98-107) mmol/L Carbon Dioxide 33 H 32 H (22-30) mmol/L BUN 19 H 19 H (7-17) mg/dL Creatinine 0.90 0.80 (0.52-1.04) mg/dL Glucose 131 H 170 H (74-99) mg/dL Calcium 9.4 9.2 (8.4-10.2) mg/dL AST 18 (14-36) U/L ALT 31 (9-52) U/L Alkaline Phosphatase 71 (38-126) U/L Total Protein 5.3 L (6.3-8.2) g/dL Albumin 3.0 L (3.5-5.0) g/dL Calcium panel 04/05/17 04/06/17 Range/Units 21:46 05:47 Calcium 9.4 9.2 (8.4-10.2) mg/dL Phosphorus 3.4 (2.5-4.5) mg/dL Albumin 3.0 L (3.5-5.0) g/dL Pituitary panel 04/05/17 04/06/17 Range/Units 21:46 05:47 Sodium 133 L 132 L (137-145) mmol/L Potassium 4.4 4.4 (3.5-5.1) mmol/L Chloride 94 L 95 L (98-107) mmol/L Carbon Dioxide 33 H 32 H (22-30) mmol/L BUN 19 H 19 H (7-17) mg/dL Creatinine 0.90 0.80 (0.52-1.04) mg/dL Glucose 131 H 170 H (74-99) mg/dL Calcium 9.4 9.2 (8.4-10.2) mg/dL Adrenal panel 11/18/17 11/19/17 Range/Units 21:46 05:47 Sodium 133 L 132 L (137-145) mmol/L Potassium 4.4 4.4 (3.5-5.1) mmol/L Chloride 94 L 95 L (98-107) mmol/L Carbon Dioxide 33 H 32 H (22-30) mmol/L BUN 19 H 19 H (7-17) mg/dL Creatinine 0.90 0.80 (0.52-1.04) mg/dL Glucose 131 H 170 H (74-99) mg/dL Calcium 9.4 9.2 (8.4-10.2) mg/dL Total Bilirubin 0.4 (0.2-1.3) mg/dL AST 18 (14-36) U/L ALT 31 (9-52) U/L Alkaline Phosphatase 71 (38-126) U/L Total Protein 5.3 L (6.3-8.2) g/dL Albumin 3.0 L (3.5-5.0) g/dL - Imaging Chest x-ray: report reviewed, image reviewed EKG: report reviewed, image reviewed Assessment and Plan Assessment: 82 years old lady with metastatic adenocarcinoma of the lung status post thoracocentesis with positive cytology in January 2017, readmitted with evidence of moderate right-sided effusion with lung opacities. Plan: We will be obtaining a computed tomography scan of the chest without contrast to better define the volume and the distribution of the right pleural effusion. Patient might need a right Pleurx catheter. We'll keep nothing by mouth after midnight took keep all options open. The risks benefits and alternative of the procedure were discussed with the patient understood them and agreed to potentially undergo the procedure should she be considered candidate for. Thank you for the privilege of this consult
--- NOTE | 2017-04-06 20:05 | CT ---
EXAMINATION TYPE: CT chest wo con DATE OF EXAM: 04/06/2017 COMPARISON: NONE HISTORY: patient complains of difficulty breathing. CT DLP: 426.3 mGycm. Automated Exposure Control for Dose Reduction was Utilized. TECHNIQUE: CT scan of the thorax is performed without IV contrast. FINDINGS: There is a moderate size right pleural effusion. There is a 5 cm rounded mass in the right upper lobe . There is also a 5 x 4 cm mass in the anterior right upper lobe adjacent to the mediastinum. Thoraci c aorta is atheromatous. There are enlarged multiple anterior mediastinal lymph nodes measure up to 3 cm. There is enlarged 3 cm subcarinal lymph node. There are enlarged right bronchial lymph nodes ant eriorly. There is significant atelectasis in the right lower lobe. The left lung is clear of consolid ation. I see no pleural fluid on the left side. There is athetoid vascular calcification. There is sp urring in the thoracic spine. I see no focal bone destruction. IMPRESSION: Large right upper lobe mass with extensive anterior and middle mediastinal adenopathy. Ma sslike infiltrate in the anterior right upper lobe adjacent to the mediastinum. This is consistent wi th tumor. Right pleural effusion. Atherosclerotic vascular disease.
[2017-04-06] MEDS: AZITHROMYCIN 500 MG in SODIUM CHLORIDE 0.9% 250 ML IVPB SCH (20:24)
[2017-04-06] MEDS: ENOXAPARIN 40 MG/0.4 ML SYRINGE SQ SCH (20:25)
[2017-04-07] MEDS: IPRATROPIUM-ALBUTEROL 3 ML NEB INHALATION SCH ×7 (00:06→21:04)
[2017-04-07] MEDS: MORPHINE SULFATE 4 MG/ML SYRINGE IV PRN ×2 (02:40→21:14)
[2017-04-07 05:51] LABS: Glucose,Whole Blood 176 mg/dL (75-99)
[2017-04-07] MEDS: ALPRAZolam 0.25 MG TAB PO SCH ×4 (05:56→23:11)
[2017-04-07] MEDS: THYROID, PORK 30 MG TAB PO SCH (05:56)
[2017-04-07] MEDS: methylPREDNISolone SOD SUCCI 40 MG/ML 1 ML VIAL IV SCH ×4 (05:56→23:11)
[2017-04-07] MEDS: INSULIN ASPART 100 UNIT/ML 1 ML 10 ML VIAL SQ SCH ×4 (06:04→21:40)
[2017-04-07 06:39] LABS: CH 28.8; HCT 38.4 % (34.0-46.0); HDW 2.99; HGB 12.3 gm/dL (11.4-16.0); Hypochromasia Slight; MCV 90.5 fL (80.0-100.0); Mean Platelet Volume 7.6; RBC 4.24 m/uL (3.80-5.40); RDW 14.7 % (11.5-15.5); WBC 12.4 k/uL (3.8-10.6)
[2017-04-07 06:54] LABS: Anion Gap 6 mmol/L; Blood Urea Nitrogen 30 mg/dL (7-17); Calcium 9.8 mg/dL (8.4-10.2); Carbon Dioxide 33 mmol/L (22-30); Chloride 96 mmol/L (98-107); Glucose 169 mg/dL (74-99); Non-African American GFR(MDRD) 53 (>60 ml/min/1.73 sqM); Potassium 4.5 mmol/L (3.5-5.1); Sodium 135 mmol/L (137-145)
[2017-04-07] MEDS: SYMBICORT 160-4.5 MCG INHALER INHALATION SCH ×2 (08:19→21:04)
--- NOTE | 2017-04-07 08:22 | P.PN ---
Subjective Progress Note Date: 04/07/17 Principal diagnosis: Malignant right-sided pleural effusion. Recent diagnosis of metastatic adenocarcinoma of the lung. Recurrent pleural effusion, right sided thoracentesis performed 01/23/2017. History of COPD, diastolic congestive heart failure, chronic atrial fibrillation, hypothyroid, and previous tobacco dependence. Currently laying in bed in no acute distress. Denies pain, shortness of breath. No new complaints. Currently nothing by mouth for possible placement of Pleurx catheter. Objective - Vital Signs Vital signs: Vital Signs Temp 97.0 F L 04/07/17 04:00 Pulse 92 04/07/17 05:39 Resp 20 04/07/17 04:00 BP 128/75 04/07/17 04:00 Pulse Ox 95 04/07/17 04:00 Intake & Output 04/06/17 04/07/17 04/07/17 18:59 06:59 18:59 Intake Total 100 440 Output Total 700 Balance -600 440 Weight 87.9 kg Intake: IV 10 0.9 10 Intake, IV Titration 100 250 Amount Azithromycin 500 mg In 250 Sodium Chloride 0.9% 250 ml @ 125 mls/hr IVPB [facility] Rx#:[id number] cefTRIAXone 1,000 mg In 100 Sodium Chloride 0.9% 50 ml @ 100 mls/hr IVPB Q24HR [facility] Rx#:[id number] Oral 180 Output: Urine 700 Other: Voiding Method Bedside Commode Toilet - Constitutional General appearance: Present: cooperative, no acute distress, obese - Respiratory Details: Lungs sounds diminished bilaterally. Currently still on overnight BiPAP, FiO2 35%, IPAP 14, EPAP 8. Computed tomography scan done yesterday reviewed with results reported to Dr. Irving. - Cardiovascular Details: S1, S2 present. Irregular rate and rhythm, atrial fibrillation on telemetry. Palpable peripheral pulses bilaterally. No edema present. - Gastrointestinal Gastrointestinal Comment(s): Abdomen soft, nontender, nondistended. Active bowel sounds 4 quadrants. Currently nothing by mouth for possible Pleurx catheter placement today. - Genitourinary Genitourinary Comment(s): Continues to void. - Neurologic Neurologic: Present: CNII-XII intact - Musculoskeletal Musculoskeletal: Present: strength equal bilaterally - Psychiatric Psychiatric: Present: A&O x's 3, appropriate affect, intact judgment & insight - Allied health notes Allied health notes reviewed: nursing - Labs CBC & Chem 7: 11/20/17 06:06 04/07/17 06:06 Labs: Abnormal Lab Results - Last 24 Hours (Table) 04/07/17 04/07/17 04/07/17 Range/Units 05:49 06:06 06:06 WBC 12.4 H (3.8-10.6) k/uL Sodium 135 L (137-145) mmol/L Chloride 96 L (98-107) mmol/L Carbon Dioxide 33 H (22-30) mmol/L BUN 30 H (7-17) mg/dL Glucose 169 H (74-99) mg/dL POC Glucose (mg/dL) 176 H (75-99) mg/dL TSH 0.086 L (0.465-4.680) mIU/L Microbiology - Last 24 Hours (Table) 04/05/17 21:46 Blood Culture - Preliminary Blood No Growth after 24 hours - Imaging and Cardiology CT scan - chest: report reviewed, image reviewed Assessment and Plan (1) Acute exacerbation of chronic obstructive airways disease Current Visit: Yes Status: Acute Code(s): J44.1 - CHRONIC OBSTRUCTIVE PULMONARY DISEASE W (ACUTE) EXACERBATION SNOMED Code(s): 192616253 (2) Atrial fibrillation Current Visit: Yes Status: Chronic Code(s): I48.91 - UNSPECIFIED ATRIAL FIBRILLATION SNOMED Code(s): 43737226 (3) COPD (chronic obstructive pulmonary disease) Current Visit: Yes Status: Chronic Code(s): J44.9 - CHRONIC OBSTRUCTIVE PULMONARY DISEASE, UNSPECIFIED SNOMED Code(s): 53143499 (4) Hypothyroid Current Visit: Yes Status: Chronic Code(s): E03.9 - HYPOTHYROIDISM, UNSPECIFIED SNOMED Code(s): 39495620 (5) Lung cancer Current Visit: Yes Status: Chronic Code(s): C34.90 - MALIGNANT NEOPLASM OF UNSP PART OF UNSP BRONCHUS OR LUNG SNOMED Code(s): 761405712 (6) Pleural effusion Current Visit: Yes Status: Acute Code(s): J90 - PLEURAL EFFUSION, NOT ELSEWHERE CLASSIFIED SNOMED Code(s): 55395850 Plan: 1. Patient to remain nothing by mouth until decision made regarding need for Pleurx catheter placement. 2. Bronchodilators, steroids, BiPAP management per pulmonology services. 3. Antibiotics, medical management per primary care services. 4. DVT prophylaxis with Lovenox, GI prophylaxis with Pepcid. 5. Increase activity as tolerated. 6. More recommendations as patient progresses. If Pleurx catheter deemed to be appropriate, we will teach patient, family about drainage with Pleurx catheter. Time with Patient: Greater than 30
[2017-04-07] MEDS: LIDOCAINE 5% PATCH TOPICAL SCH (08:39)
[2017-04-07] MEDS: cefTRIAXone IN SWFI 1,000 MG/10 ML SYRINGE IVP SCH (08:40)
[2017-04-07] MEDS: DILTIAZEM CD 300 MG CAP.ER.24H PO SCH (09:51)
[2017-04-07] MEDS: ASPIRIN 325 MG TAB PO SCH (09:51)
[2017-04-07] MEDS: DIGOXIN 125 MCG TAB PO SCH (09:51)
[2017-04-07] MEDS: FAMOTIDINE 20 MG TAB PO SCH (09:51)
[2017-04-07] MEDS: SPIRONOLACTONE 25 MG TAB PO SCH (09:52)
[2017-04-07] MEDS: FUROSEMIDE 40 MG TAB PO SCH ×2 (09:52→20:07)
[2017-04-07] MEDS: METOPROLOL TARTRATE 25 MG TAB PO SCH ×2 (09:52→21:40)
[2017-04-07] MEDS: ASCORBIC ACID 500 MG TAB PO SCH (12:16)
[2017-04-07 12:21] LABS: Glucose,Whole Blood 165 mg/dL (75-99)
--- NOTE | 2017-04-07 15:05 | P.CNPUL ---
History of Present Illness Consult date: 04/07/17 Reason for consult: dyspnea History of present illness: This is a 82-year-old female patient was hospitalized because of progressive worsening shortness of breath. 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 The patient was seen at [facility] and a thoracentesis was done back in January 2017 and the pleural fluid cytology was positive for adenocarcinoma of the lung. The patient declined receiving any treatment back then for this new diagnosis. Over the past 2-3 months, the patient was about to make an appointment with me for further planning and she end up in the hospital yesterday because of worsening shortness of breath, and same time the patient was found to be in atrial fibrillation with rapid ventricular response. She is also complaining of pain along the right upper neck area as the patient has firm lymphadenopathy within the supraclavicular area and this is probably invading the brachial plexus. Right upper extremities also swollen. No significant cough or sputum production. No hemoptysis. No chest pain. Computed tomography scan of the chest was done and showed a large right upper lobe mass measuring 5 cm in size in addition to extensive lymphadenopathy along the mediastinum with multiple enlarged anterior mediastinal lymph nodes measuring up to 3 cm in size and another 3 cm lymph node and subcarinal area. There is also an enlarged right bronchial lymph nodes anteriorly. There is also atelectasis in the right lower lobe. Left lung is clear. There is pleural effusion on the right which is somewhat loculated. The patient was being considered for Pleurx catheter insertion regarding the recurrent right- sided pleural effusion and for that reason a cardiothoracic consultation was requested. Meanwhile, the patient is much more comfortable on today's evaluation. Heart rate has slowed down. No symptoms of shortness of breath at rest. She is able to speak Full sentences. Review of Systems Constitutional: Reports fatigue, Reports weight gain Eyes: denies blurred vision, denies bulging eye, denies decreased vision Ears: deny: decreased hearing, ear discharge, earache, tinnitus Ears, nose, mouth and throat: Denies headache, Denies sore throat Cardiovascular: Reports decreased exercise tolerance, Reports dyspnea on exertion Respiratory: Reports dyspnea Gastrointestinal: Denies abdominal pain, Denies diarrhea, Denies nausea, Denies vomiting Genitourinary: Denies dysuria, Denies hematuria Musculoskeletal: Denies myalgias Musculoskeletal: absent: ankle pain, ankle stiffness, ankle swelling Integumentary: Denies pruritus, Denies rash Neurological: Denies numbness, Denies weakness Psychiatric: Denies anxiety, Denies depression Endocrine: Denies fatigue, Denies weight change Past Medical History Past Medical History: Atrial Fibrillation, Cancer, Heart Failure, COPD, Thyroid Disorder Additional Past Medical History / Comment(s): 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, malignant right-sided pleural effusion, chronic atrial fibrillation , hypothyroidism, CHF, hypertension History of Any Multi-Drug Resistant Organisms: None Reported Past Surgical History: Tubal Ligation Past Anesthesia/Blood Transfusion Reactions: No Reported Reaction Past Psychological History: No Psychological Hx Reported Smoking Status: Former smoker (20 pack year smoking history quit in the age of 40s) Past Alcohol Use History: None Reported Past Drug Use History: None Reported - Past Family History Father Family Medical History: Myocardial Infarction ([place]) Additional Family Medical History / Comment(s): emphysema Mother Family Medical History: Congestive Heart Failure (CHF), CVA/TIA Brother(s) Family Medical History: Diabetes Mellitus Medications and Allergies Home Medications Medication Instructions Recorded Confirmed Type ALPRAZolam [Xanax] 0.25 mg PO Q6HR 04/05/17 04/05/17 History Albuterol Inhaler [Ventolin Hfa 1 - 2 puff INHALATION RT-Q4H PRN 04/05/17 History Inhaler] Alpha Lipoic Acid 100 mg PO BID 04/05/17 04/05/17 History Ascorbic Acid [Vitamin C] 500 mg PO DAILY 04/05/17 04/05/17 History Aspirin 325 mg PO DAILY 04/05/17 04/05/17 History Digoxin [Digitek] 125 mcg PO DAILY 04/05/17 04/05/17 History Diltiazem HCl [Diltiazem 24Hr ER] 300 mg PO DAILY 04/05/17 04/05/17 History Famotidine 20 mg PO DAILY 04/05/17 04/05/17 History Fluticasone/Vilanterol [Breo 1 puff INHALATION RT-DAILY 04/05/17 04/05/17 History Ellipta 200-25 Mcg INH] Furosemide [Lasix] 40 mg PO BID 04/05/17 04/05/17 History Ipratropium-Albuterol Nebulize 3 ml INHALATION RT-Q4H 04/05/17 04/05/17 History [Duoneb 0.5 mg-3 mg/3 ml Soln] Lidocaine 5% Patch [Lidoderm] 1 patch TOPICAL DAILY 04/05/17 04/05/17 History Metoprolol Tartrate [Lopressor] 25 mg PO BID 04/05/17 04/05/17 History Spironolactone [Aldactone] 25 mg PO DAILY 04/05/17 04/05/17 History Thyroid,Pork [[place] Thyroid] 60 mg PO DAILY 04/05/17 04/05/17 History Allergies Allergy/AdvReac Type Severity Reaction Status Date / Time egg Allergy Unknown Verified 04/05/17 16:32 tetracycline Allergy Unknown Verified 04/05/17 16:32 Physical Exam Vitals: Vital Signs Temp Pulse Pulse Pulse Resp BP BP 04/07/17 12:00 97.9 F 81 20 117/61 04/07/17 11:38 84 04/07/17 11:30 80 04/07/17 08:30 88 04/07/17 08:16 92 04/07/17 08:00 97.2 F L 82 18 132/74 04/07/17 05:39 92 04/07/17 05:35 90 04/07/17 04:00 97.0 F L 79 20 128/75 04/07/17 00:00 97.2 F L 79 20 125/45 04/06/17 20:21 92 04/06/17 20:00 97.8 F 88 90 20 129/46 04/06/17 16:18 88 04/06/17 16:02 84 04/06/17 16:00 98.4 F 79 20 98/51 Pulse Ox 04/07/17 12:00 96 04/07/17 11:38 04/07/17 11:30 04/07/17 08:30 04/07/17 08:16 04/07/17 08:00 94 L 04/07/17 05:39 04/07/17 05:35 04/07/17 04:00 95 04/07/17 00:00 94 L 04/06/17 20:21 04/06/17 20:00 93 L 04/06/17 16:18 04/06/17 16:02 04/06/17 16:00 93 L Intake and Output 04/06/17 04/07/17 04/07/17 22:59 06:59 14:59 Intake Total 430 10 Output Total 300 Balance 130 10 Intake: IV 10 0.9 10 Intake, IV Titration 250 Amount Azithromycin 500 mg In 250 Sodium Chloride 0.9% 250 ml @ 125 mls/hr IVPB HS [facility] Rx#:[id number] Oral 180 Output: Urine 300 Other: Voiding Method Bedside Commode Toilet # Voids 0 # Bowel Movements 0 Weight 87.9 kg Head exam was generally normal. There was no scleral icterus or corneal arcus. Mucous membranes were moist. Neck is short and supple and the patient has significant crowding of the posterior oropharynx. The patient has firm and irregular lymphadenopathy in the right supraclavicular area which is quite tender to palpation. Lungs sounds are diminished in the right lung base along with some dullness to percussion. Otherwise normal.Cardiac exam revealed the PMI to be normally situated and sized. The rhythm was regular and no extrasystoles were noted during several minutes of auscultation. The first and second heart sounds irregular secondary to atrial fibrillation and physiologic splitting of the second heart sound was noted. There were no murmurs, rubs, clicks, or gallops.Abdominal exam revealed normal bowel sounds. The abdomen was soft, non-tender, and without masses, organomegaly, or appreciable enlargement of the abdominal aorta. Extremities show some swelling in the right upper extremity compared to the left yet there is adequate motor function in all 4 extremities with normal sensation. No cyanosis or clubbing at this point.Examination of the skin revealed no evidence of significant rashes, suspicious appearing nevi or other concerning lesions. Neurologically the patient is awake and alert and there is no focal neurological deficit this point Results - Laboratory Findings CBC and BMP: 04/07/17 06:06 04/07/17 06:06 PT/INR, D-dimer PT 9.8 sec (9.0-12.0) 04/05/17 16:52 INR 1.0 (<1.2) 04/05/17 16:52 Abnormal lab findings: Abnormal Labs 04/05/17 04/05/17 04/05/17 16:52 16:52 16:52 WBC Lymphocytes # APTT 21.5 L Sodium 134 L Chloride 94 L Carbon Dioxide 35 H BUN Glucose 132 H POC Glucose (mg/dL) Total Creatine Kinase <20 L Total Protein 5.7 L Albumin 3.1 L TSH 04/05/17 04/06/17 04/06/17 21:46 05:47 05:47 WBC Lymphocytes # 0.5 L APTT Sodium 133 L 132 L Chloride 94 L 95 L Carbon Dioxide 33 H 32 H BUN 19 H 19 H Glucose 131 H 170 H POC Glucose (mg/dL) Total Creatine Kinase Total Protein 5.3 L Albumin 3.0 L TSH 04/07/17 04/07/17 04/07/17 05:49 06:06 06:06 WBC 12.4 H Lymphocytes # APTT Sodium 135 L Chloride 96 L Carbon Dioxide 33 H BUN 30 H Glucose 169 H POC Glucose (mg/dL) 176 H Total Creatine Kinase Total Protein Albumin TSH 0.086 L 04/07/17 12:11 WBC Lymphocytes # APTT Sodium Chloride Carbon Dioxide BUN Glucose POC Glucose (mg/dL) 165 H Total Creatine Kinase Total Protein Albumin TSH - Diagnostic Findings Chest x-ray: image reviewed CT scan - chest: image reviewed Assessment and Plan Plan: Assessment 1 stage IV adenocarcinoma of the lung 2 malignant right-sided pleural effusion, with some limited loculation 3 bulky cervical lymphadenopathy probably malignant causing some pain and possible some mass effect on the brachial plexus 4 A. fib RVR, rate is under better control on oral Cardizem 5 CHF 6 hypothyroidism 7 hypertension 8 morbid obesity 9 shortness of breath secondary to above, improving Plan Long-term prognosis poor based on stage IV metastatic adenocarcinoma of the lung. Continue same treatment for now. Cardiothoracic surgery on the case for pruritus catheter insertion. Continue bronchodilators. Continue steroids. Doubt infection at this point. Antibiotics can be discontinued. We'll continue to follow.
--- NOTE | 2017-04-07 15:23 | P.PN ---
Subjective Progress Note Date: 04/07/17 (Delayed charting patient seen at 1030am) Principal diagnosis: shortness of breath 82-year-old female recently discovered lung cancer, A. fib, heart failure, COPD who presented to the emergency department with progressively worsening dyspnea. She states that she was told she had lung cancer, but did not want a biopsy as she would not want chemo or radiation but states they told her was cancer after having a thoracentesis done approximately 2 weeks ago. She has been following with her primary care physician Dr. Geiger who helps her with alternative medications and is an M.D. but follows holistic medicine. She' s been taking an unknown supplement for help with her cancer. She does wear 3 L nasal cannula at home and uses BiPAP. On arrival she was found to have A. fib with RVR at a rate of 106. In the emergency department she was found have an acute exacerbation of COPD and pleural effusion. She was started on bronchodilators and was admitted to the selective care unit for further monitoring and care. Pulmonary was consulted. They recommended possible Pleurx catheter placement and therefore consulted cardiac vascular surgery. She was also started on antibiotics, steroids, and scheduled bronchodilators for possible acute exacerbation of COPD. Patient seen and examined at bedside. She states her breathing is better at rest but is still bad with exertion. We had a long discussion about her not wanting to pursue traditional chemoradiation for her cancer, she was all possibilities unpassed her primary care physician Dr. Geiger. She states that her PCP did state Pleurx catheter may help her. She is interested in obtaining this for treatment. She also states she is was to see Dr. Wall on Friday at the clinic but her ride from Medicare fell through his they could not find a van driver and she therefore missed her appointment. She denies any chest pain, nausea, vomiting, constipation, or diarrhea. Objective - Vital Signs Vital signs: Vital Signs Temp 97.9 F 04/07/17 12:00 Pulse 81 04/07/17 12:00 Resp 20 04/07/17 12:00 BP 117/61 04/07/17 12:00 Pulse Ox 96 04/07/17 12:00 Intake & Output 04/06/17 04/07/17 04/07/17 18:59 06:59 18:59 Intake Total 100 440 Output Total 700 Balance -600 440 Weight 87.9 kg Intake: IV 10 0.9 10 Intake, IV Titration 100 250 Amount Azithromycin 500 mg In 250 Sodium Chloride 0.9% 250 ml @ 125 mls/hr IVPB HS [facility] Rx#:[id number] cefTRIAXone 1,000 mg In 100 Sodium Chloride 0.9% 50 ml @ 100 mls/hr IVPB Q24HR [facility] Rx#:[id number] Oral 180 Output: Urine 700 Other: Voiding Method Bedside Commode Toilet # Voids 0 # Bowel Movements 0 - Exam General: non toxic, mild distress, appears at stated age Derm: warm, dry Head: atraumatic, normocephalic, symmetric Eyes: EOMI, no lid lag, anicteric sclera Mouth: no lip lesion, mucus membranes moist Cardiovascular: S1S2 irreg, no murmur, positive posterior tibial pulse bilateral , Lungs: decreased bs b/l, no rhonchi, no rales , + accessory muscle use Abdominal: soft, nontender to palpation, no guarding, no appreciable organomegaly Ext: no gross muscle atrophy, no edema, no contractures Neuro: CN II-XI grossly intact, no focal neuro deficits Psych: Alert, oriented, appropriate affect - Labs CBC & Chem 7: 04/07/17 06:06 04/07/17 06:06 Labs: Abnormal Lab Results - Last 24 Hours (Table) 04/07/17 04/07/17 04/07/17 Range/Units 05:49 06:06 06:06 WBC 12.4 H (3.8-10.6) k/uL Sodium 135 L (137-145) mmol/L Chloride 96 L (98-107) mmol/L Carbon Dioxide 33 H (22-30) mmol/L BUN 30 H (7-17) mg/dL Glucose 169 H (74-99) mg/dL POC Glucose (mg/dL) 176 H (75-99) mg/dL TSH 0.086 L (0.465-4.680) mIU/L 04/07/17 Range/Units 12:11 WBC (3.8-10.6) k/uL Sodium (137-145) mmol/L Chloride (98-107) mmol/L Carbon Dioxide (22-30) mmol/L BUN (7-17) mg/dL Glucose (74-99) mg/dL POC Glucose (mg/dL) 165 H (75-99) mg/dL TSH (0.465-4.680) mIU/L Microbiology - Last 24 Hours (Table) 04/05/17 21:46 Blood Culture - Preliminary Blood No Growth after 24 hours Assessment and Plan Assessment: Recurrent malignant right-sided pleural effusion with stage IV adenocarcinoma lung -Pleurx catheter with cardiothoracic surgery -Pain control -Await results from [facility] -Pulmonary recommendations -Consider oncology consultation if patient is willing Acute on chronic hypoxic respiratory failure -Continue with oxygen supplementation -Continue with BiPAP at night Acute exacerbation of COPD -Steroids, bronchodilators, antibiotics decreased to Zithromax only oral -Pulmonary recommendations appreciated Obesity with BMI 36.6 -Structured outpatient weight loss A. fib with rapid ventricular response -Heart rate is now controlled -Continue with Cardizem, metoprolol, to digoxin -Not on chronic anticoagulation -Aspirin Hypothyroidism -TSH decreased T 4 normal continue with [place] Thyroid - follow with PCP regarding decreasing this medication Compensated ingested heart failure, ejection fraction unknown -Continue with Aldactone, metoprolol, and Lasix DVT prophylaxis: LovenoxP Discussed with: patient, nursing, case management, CVT Anticipated discharge: 48-[address]: home with home health A total of 45 minutes was spent on the care of this complex patient more than 50 % of the time was spent in counseling and care coordination.
--- NOTE | 2017-04-07 16:11 | US ---
EXAMINATION TYPE: US venous doppler duplex UE RT DATE OF EXAM: 04/07/2017 COMPARISON: NONE CLINICAL HISTORY: swelling in right arm. Edema SIDE PERFORMED: Right Evaluation of the internal jugular, subclavian, axillary and brachial veins. Basilic vein shows lack of color flow. There is no compressibility. Brachial veins are compressible and patent. Right Arm: Appears positive for DVT in subclavian vein, axillary vein and basilic vein Low-level internal echoes present near the junction of the subclavian and internal jugular vein IMPRESSION: Grayscale, color doppler, spectral doppler imaging performed of the deep veins of the upper extremiti es. Deep venous thrombosis present within the axillary vein, subclavian vein and at the junction with the internal jugular vein on the right. Superficial venous thrombosis basilic vein. Results relayed to Tanya telephonically at the time of interpretation.
[2017-04-07] MEDS ORDERED: LACTATED RINGERS 1,000 ML IV ONE (16:54)
[2017-04-07 16:58] LABS: Glucose,Whole Blood 136 mg/dL (75-99)
[2017-04-07] MEDS ORDERED: HYDROmorphone 2 MG/ML 1 ML SYRINGE IVP ONE ×4 (17:50→18:20)
--- NOTE | 2017-04-07 18:14 | XR ---
EXAMINATION TYPE: XR chest 1V portable DATE OF EXAM: 04/07/2017 COMPARISON: 04/05/2017 HISTORY: Catheter placement TECHNIQUE: Single frontal view of the chest is obtained. FINDINGS: There is a right chest tube. There is no sign of pneumothorax. There is large right pleura l effusion that is similar to the exam of 04/05/2017. There is no heart failure. There is masslike de nsity in the right upper lobe medially. IMPRESSION: No pneumothorax.
[2017-04-07] MEDS ORDERED: HEPARIN SODIUM,PORCINE 5,000 UNIT/ML 1 ML VIAL IV PRN (18:46)
[2017-04-07] MEDS ORDERED: HEPARIN SODIUM,PORCINE 10,000 UNIT/ML 1 ML VIAL IV ONE (19:00)
[2017-04-07 19:20] LABS: Prothrombin Time 10.2 sec (9.0-12.0)
[2017-04-07] MEDS: HEPARIN SODIUM,PORCINE 25,000 UNIT in SODIUM CHLORIDE 0.9% 500 ML IV SCH (20:18)
[2017-04-07 21:10] LABS: Glucose,Whole Blood 206 mg/dL (75-99)
[2017-04-07] MEDS: AZITHROMYCIN 250 MG TAB PO SCH (21:40)
[2017-04-08] MEDS: IPRATROPIUM-ALBUTEROL 3 ML NEB INHALATION SCH ×7 (00:41→23:20)
[2017-04-08 02:58] LABS: Basophils % (A) 0 %; CH 29.3; CHCM 32.4; Eosinophils % (A) 0 %; HCT 35.4 % (34.0-46.0); HGB 11.2 gm/dL (11.4-16.0); Hypochromasia Slight; Luc # (Auto) 0.09; Luc % (Auto) 1; Lymphocytes # (A) 0.5 k/uL (1.0-4.8); Lymphocytes % (A) 3 %; MCH 28.7 pg (25.0-35.0); MCHC 31.5 g/dL (31.0-37.0); Mean Platelet Volume 7.3; Monocytes # (A) 0.6 k/uL (0-1.0); Monocytes % (A) 4 %; Neutrophils # (A) 12.9 k/uL (1.3-7.7); Neutrophils % (A) 92 %; RBC 3.89 m/uL (3.80-5.40); WBC (Perox) 13.85
[2017-04-08] MEDS: MORPHINE SULFATE 4 MG/ML SYRINGE IV PRN ×4 (03:35→23:30)
[2017-04-08 03:40] LABS: ALT 34 U/L (9-52); AST 15 U/L (14-36); Alkaline Phosphatase 53 U/L (38-126); Anion Gap 5 mmol/L; Blood Urea Nitrogen 33 mg/dL (7-17); Calcium 9.5 mg/dL (8.4-10.2); Carbon Dioxide 35 mmol/L (22-30); Chloride 94 mmol/L (98-107); Glucose 159 mg/dL (74-99); Non-African American GFR(MDRD) 53 (>60 ml/min/1.73 sqM); Potassium 4.3 mmol/L (3.5-5.1); Sodium 134 mmol/L (137-145); Total Bilirubin <0.1 mg/dL (0.2-1.3)
[2017-04-08 06:15] LABS: Glucose,Whole Blood 160 mg/dL (75-99)
[2017-04-08] MEDS: THYROID, PORK 30 MG TAB PO SCH (06:32)
[2017-04-08] MEDS: methylPREDNISolone SOD SUCCI 40 MG/ML 1 ML VIAL IV SCH ×3 (06:32→20:59)
[2017-04-08] MEDS: ALPRAZolam 0.25 MG TAB PO SCH ×3 (06:32→17:01)
[2017-04-08] MEDS: INSULIN ASPART 100 UNIT/ML 1 ML 10 ML VIAL SQ SCH ×4 (06:32→21:00)
[2017-04-08] MEDS: SYMBICORT 160-4.5 MCG INHALER INHALATION SCH ×2 (07:54→19:22)
--- NOTE | 2017-04-08 08:08 | OP ---
Date of Procedure: 04/07/17 Preoperative Diagnosis: Lung cancer, recurrent right malignant pleural effusion Postoperative Diagnosis: Same Procedure(s) Performed: Right Pleurx catheter implant with fluoroscopy guidance Implants: Pleurx catheter Anesthesia: MAC Surgeon: Calvin Read Process Manager #1: Myles Mar Estimated Blood Loss (ml): 1 IV fluids (ml): 200 Urine output (ml): 0 Pathology: none sent Condition: stable Disposition: PACU Indications for Procedure: 75-year-old female diagnosed with adenocarcinoma of the lung with a positive cytology in the right pleural fluid in January at that time she had 500 mL of pleural fluid drained. Hence at this time with shortness of breath. She is noted to have a recurrent right pleural effusion. Options for repeat thoracentesis versus Pleurx catheter were discussed with the patient. Decision was reached usually with the patient to proceed with Pleurx catheter implant. Operative Findings: Drained 900 mL of serous pleural fluid Description of Procedure: The patient was brought to the operating room, placed supine on the operating table, IV sedation was given, the right arm was kept out at 90 and the left arm was tucked. The left chest and upper abdomen were sterilely prepped and draped. 2% lidocaine was used to anesthetize an area in the midaxillary line around the sixth interspace. Skinny needle demonstrated pleural fluid at this level. 18-gauge needle was placed into the pleural fluid and a guidewire was advanced under fluoroscopic guidance. This site was then enlarged to 1.5 cm and he counterincision was made after instillation of local anesthesia in the right upper quadrant 1 cm long. The Pleurx catheter was tunneled from the abdominal incision to the chest incision with the cuff positioned just under the skin at the exit site. Introducer and dilator were placed over the guidewire and through the introducer sheath first catheter was advanced into the right pleural space. Introducer sheath was removed. Good placement of the catheter was confirmed on fluoroscopy. The catheter was connected to suction and a total of 800 mL was drained. There was an additional 100 mL that it drained out during the placement. The chest site was closed with a 4-0 Vicryl suture and some skin glue. At the exit site with a 2-0 silk. Standard Pleurx dressing was applied. She was transferred to recovery in stable condition. [facility]ITAL[facility]
--- NOTE | 2017-04-08 08:26 | XR ---
EXAMINATION TYPE: XR chest 2V DATE OF EXAM: 04/08/2017 COMPARISON: Prior chest x-ray 04/07/2017 HISTORY: Pleural catheter placement TECHNIQUE: Frontal and lateral views of the chest are obtained. FINDINGS: Pleural parenchymal changes are similar to prior exam. There are overlying cardiac leads. No evident pneumothorax. Pleural catheter stable at the right lung base. There may be some slight int erval reduction in pleural effusion on the right. IMPRESSION: Improvement in right pleural effusion.
[2017-04-08] MEDS: DIGOXIN 125 MCG TAB PO SCH (08:49)
[2017-04-08] MEDS: DILTIAZEM CD 300 MG CAP.ER.24H PO SCH (08:49)
[2017-04-08] MEDS: SPIRONOLACTONE 25 MG TAB PO SCH (08:49)
[2017-04-08] MEDS: FUROSEMIDE 40 MG TAB PO SCH ×2 (08:49→16:58)
[2017-04-08] MEDS: FAMOTIDINE 20 MG TAB PO SCH (08:49)
[2017-04-08] MEDS: ASPIRIN 325 MG TAB PO SCH (08:49)
[2017-04-08] MEDS: METOPROLOL TARTRATE 25 MG TAB PO SCH ×2 (08:49→20:58)
[2017-04-08] MEDS: LIDOCAINE 5% PATCH TOPICAL SCH (08:50)
--- NOTE | 2017-04-08 09:11 | P.PN ---
Subjective Progress Note Date: 04/08/17 Principal diagnosis: Malignant right-sided pleural effusion. Recent diagnosis of metastatic adenocarcinoma of the lung. Recurrent pleural effusion, with right sided thoracentesis performed 01/23/2017. History of COPD, diastolic congestive heart failure, chronic atrial fibrillation, hypothyroid, and previous tobacco dependence. POD #1 status post right Pleurx catheter implant with fluoroscopy guidance. The patient is sitting up to her bedside eating her breakfast. No acute distress. She denies any complaints of pain or shortness of breath at this time. Objective - Vital Signs Vital signs: Vital Signs Temp 97.0 F L 04/08/17 04:00 Pulse 81 04/08/17 04:00 Resp 22 04/08/17 04:00 BP 138/65 04/08/17 04:00 Pulse Ox 97 04/08/17 04:00 Intake & Output 04/07/17 04/08/17 04/08/17 18:59 06:59 18:59 Intake Total 700 270.329 Output Total 901 175 Balance -201 95.329 Weight 88 kg Intake: IV 700 Intake, IV Titration 170.329 Amount Heparin Sodium,Porcine 25 170.329 ,000 unit In Sodium Chloride 0.9% 500 ml @ 18 UNITS/KG/HR 31.64 mls/hr IV .[id number] [facility] Rx#: [id number] Oral 0 100 Output: Urine 175 Pleural Fluid 900 Estimated Blood Loss 1 Other: Voiding Method Toilet # Voids 0 1 # Bowel Movements 0 - Constitutional General appearance: Present: cooperative, no acute distress, obese - EENT Eyes: Present: PERRLA ENT: Present: hearing grossly normal - Neck Details: No JVD, no lymphadenopathy. - Respiratory Details: Lung sounds essentially clear throughout, distribution associate bilateral bases. Respirations are symmetrical and nonlabored. Oxygen saturation saturations are 97% on 3 L nasal cannula. Right Pleurx catheter in place and secured. Pleurx dressing moist with serosanguineous drainage. - Cardiovascular Details: Irregular rhythm and controlled rate. S1 and S2 present, negative for S3, gallop or murmur. Remote telemetry showing atrial fibrillation heart rate 64. Right arm edema +3. - Gastrointestinal Gastrointestinal Comment(s): Abdomen is soft, nontender and nondistended. Active bowel sounds all 4 abdominal quadrants. Tolerating oral intake. - Genitourinary Genitourinary Comment(s): Urine output adequate. - Integumentary Integumentary Comment(s): Right Pleurx catheter with scant serosanguineous drainage at insertion site. Erythema to her right arm. - Neurologic Neurologic: Present: CNII-XII intact - Musculoskeletal Musculoskeletal: Present: gait normal, strength equal bilaterally - Psychiatric Psychiatric: Present: A&O x's 3, appropriate affect, intact judgment & insight - Allied health notes Allied health notes reviewed: nursing - Labs CBC & Chem 7: 04/08/17 01:30 04/08/17 01:21 Labs: Abnormal Lab Results - Last 24 Hours (Table) 04/06/17 04/07/17 04/07/17 Range/Units 05:47 12:11 16:57 WBC (3.8-10.6) k/uL Hgb (11.4-16.0) gm/dL Neutrophils # (1.3-7.7) k/uL Lymphocytes # (1.0-4.8) k/uL APTT (22.0-30.0) sec Sodium (137-145) mmol/L Chloride (98-107) mmol/L Carbon Dioxide (22-30) mmol/L BUN (7-17) mg/dL Glucose (74-99) mg/dL POC Glucose (mg/dL) 165 H 136 H (75-99) mg/dL Total Bilirubin (0.2-1.3) mg/dL Total Protein (6.3-8.2) g/dL Albumin (3.5-5.0) g/dL Procalcitonin 0.12 H (<=0.10) ng/mL 04/07/17 04/07/17 04/08/17 Range/Units 18:54 20:54 00:37 WBC (3.8-10.6) k/uL Hgb (11.4-16.0) gm/dL Neutrophils # (1.3-7.7) k/uL Lymphocytes # (1.0-4.8) k/uL APTT 20.0 L 117.4 H* (22.0-30.0) sec Sodium (137-145) mmol/L Chloride (98-107) mmol/L Carbon Dioxide (22-30) mmol/L BUN (7-17) mg/dL Glucose (74-99) mg/dL POC Glucose (mg/dL) 206 H (75-99) mg/dL Total Bilirubin (0.2-1.3) mg/dL Total Protein (6.3-8.2) g/dL Albumin (3.5-5.0) g/dL Procalcitonin (<=0.10) ng/mL 04/08/17 04/08/17 04/08/17 Range/Units 01:21 01:30 06:12 WBC 14.0 H (3.8-10.6) k/uL Hgb 11.2 L (11.4-16.0) gm/dL Neutrophils # 12.9 H (1.3-7.7) k/uL Lymphocytes # 0.5 L (1.0-4.8) k/uL APTT (22.0-30.0) sec Sodium 134 L (137-145) mmol/L Chloride 94 L (98-107) mmol/L Carbon Dioxide 35 H (22-30) mmol/L BUN 33 H (7-17) mg/dL Glucose 159 H (74-99) mg/dL POC Glucose (mg/dL) 160 H (75-99) mg/dL Total Bilirubin <0.1 L (0.2-1.3) mg/dL Total Protein 5.0 L (6.3-8.2) g/dL Albumin 2.7 L (3.5-5.0) g/dL Procalcitonin (<=0.10) ng/mL Microbiology - Last 24 Hours (Table) 04/05/17 21:46 Blood Culture - Preliminary Blood No Growth after 48 hours - Imaging and Cardiology Chest x-ray: image reviewed Assessment and Plan (1) Morbid obesity Current Visit: Yes Status: Acute Code(s): E66.01 - MORBID (SEVERE) OBESITY DUE TO EXCESS CALORIES SNOMED Code(s): 215036032 (2) Stage IV adenocarcinoma of lung Current Visit: Yes Status: Acute Code(s): C34.90 - MALIGNANT NEOPLASM OF UNSP PART OF UNSP BRONCHUS OR LUNG SNOMED Code(s): 572074640 (3) Hypertension Current Visit: Yes Status: Acute Code(s): I10 - ESSENTIAL (PRIMARY) HYPERTENSION SNOMED Code(s): 09793747 (4) Pleural effusion, malignant Current Visit: Yes Status: Acute Code(s): J91.0 - MALIGNANT PLEURAL EFFUSION SNOMED Code(s): 73710079 (5) Heart failure Current Visit: Yes Status: Acute Code(s): I50.9 - HEART FAILURE, UNSPECIFIED SNOMED Code(s): 61476948 (6) Atrial fibrillation Current Visit: Yes Status: Chronic Code(s): I48.91 - UNSPECIFIED ATRIAL FIBRILLATION SNOMED Code(s): 16294190 (7) COPD (chronic obstructive pulmonary disease) Current Visit: Yes Status: Chronic Code(s): J44.9 - CHRONIC OBSTRUCTIVE PULMONARY DISEASE, UNSPECIFIED SNOMED Code(s): 37535348 (8) Hypothyroid Current Visit: Yes Status: Chronic Code(s): E03.9 - HYPOTHYROIDISM, UNSPECIFIED SNOMED Code(s): 98975424 Plan: 1. Her Pleurx catheter will be drained today and a new dressing will be placed to cover the Pleurx catheter. 2. Right arm DVT management per internal medicine services. 3. Pulmonary management per Dr. Wall's recommendations. 4. Increase activity as tolerated. 5. Pleurx catheter teaching completed today with the patient. 200 mL of thin serosanguineous drainage evacuated. 6. More recommendations as patient progresses. Time with Patient: Greater than 30
--- NOTE | 2017-04-08 11:02 | FL ---
Fluoroscopy HISTORY: Pleural catheter placement 42 seconds fluoroscopy time supplied to the referring clinician. 1 intraoperative C-arm images docum ent the procedure. See dictated report from cardiothoracic surgery.
--- NOTE | 2017-04-08 11:31 | P.PN ---
Subjective Progress Note Date: 04/08/17 Principal diagnosis: Malignant right-sided pleural effusion This is a 82-year-old female patient was hospitalized because of progressive worsening shortness of breath. 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 The patient was seen at [facility] and a thoracentesis was done back in January 2017 and the pleural fluid cytology was positive for adenocarcinoma of the lung. The patient declined receiving any treatment back then for this new diagnosis. Over the past 2-3 months, the patient was about to make an appointment with me for further planning and she end up in the hospital yesterday because of worsening shortness of breath, and same time the patient was found to be in atrial fibrillation with rapid ventricular response. She is also complaining of pain along the right upper neck area as the patient has firm lymphadenopathy within the supraclavicular area and this is probably invading the brachial plexus. Right upper extremities also swollen. No significant cough or sputum production. No hemoptysis. No chest pain. Computed tomography scan of the chest was done and showed a large right upper lobe mass measuring 5 cm in size in addition to extensive lymphadenopathy along the mediastinum with multiple enlarged anterior mediastinal lymph nodes measuring up to 3 cm in size and another 3 cm lymph node and subcarinal area. There is also an enlarged right bronchial lymph nodes anteriorly. There is also atelectasis in the right lower lobe. Left lung is clear. There is pleural effusion on the right which is somewhat loculated. The patient was being considered for Pleurx catheter insertion regarding the recurrent right- sided pleural effusion and for that reason a cardiothoracic consultation was requested. Meanwhile, the patient is much more comfortable on today's evaluation. Heart rate has slowed down. No symptoms of shortness of breath at rest. She is able to speak Full sentences. The patient is seen again today 04/08/2017 in follow-up on the selective care unit. She is doing well today. She is awake and alert in no acute distress. She states she is breathing easier today as compared to yesterday. She is maintaining good O2 saturations in the high 90s on 3 L/m per nasal cannula. She 's been afebrile. Hemodynamically stable. Pleurx catheter is in place. 200 mL of serosanguineous fluid was drained today. Today's chest x-ray does show improvement in the right pleural effusion. She is anxious to go home. She was found to have a right upper extremity DVT in the subclavian, axillary and basilic veins. She is currently on a heparin drip. She'll be initiated on oral anticoagulants. Objective - Vital Signs Vital signs: Vital Signs Temp 97 F L 04/08/17 08:00 Pulse 66 04/08/17 08:00 Resp 18 04/08/17 08:00 BP 109/56 04/08/17 08:00 Pulse Ox 99 04/08/17 08:00 Intake & Output 04/07/17 04/08/17 04/08/17 18:59 06:59 18:59 Intake Total 700 270.329 360 Output Total 901 175 Balance -201 95.329 360 Weight 88 kg Intake: IV 700 Intake, IV Titration 170.329 Amount Heparin Sodium,Porcine 25 170.329 ,000 unit In Sodium Chloride 0.9% 500 ml @ 18 UNITS/KG/HR 31.64 mls/hr IV .[id number] [facility] Rx#: [id number] Oral 0 100 360 Output: Urine 175 Pleural Fluid 900 Estimated Blood Loss 1 Other: Voiding Method Toilet # Voids 0 1 # Bowel Movements 0 - Exam Head exam was generally normal. There was no scleral icterus or corneal arcus. Mucous membranes were moist. Neck is short and supple and the patient has significant crowding of the posterior oropharynx. The patient has firm and irregular lymphadenopathy in the right supraclavicular area which is quite tender to palpation. Lungs sounds are diminished in the right lung base along with some dullness to percussion. Right Pleurx catheter in place. Otherwise normal.Cardiac exam revealed the PMI to be normally situated and sized. The rhythm was regular and no extrasystoles were noted during several minutes of auscultation. The first and second heart sounds irregular secondary to atrial fibrillation and physiologic splitting of the second heart sound was noted. There were no murmurs, rubs, clicks, or gallops.Abdominal exam revealed normal bowel sounds. The abdomen was soft, non-tender, and without masses, organomegaly , or appreciable enlargement of the abdominal aorta. Extremities show some swelling in the right upper extremity compared to the left yet there is adequate motor function in all 4 extremities with normal sensation. No cyanosis or clubbing at this point.Examination of the skin revealed no evidence of significant rashes, suspicious appearing nevi or other concerning lesions. Neurologically the patient is awake and alert and there is no focal neurological deficit this point - Labs CBC & Chem 7: 04/08/17 01:30 04/08/17 01:21 Labs: Abnormal Lab Results - Last 24 Hours (Table) 04/06/17 04/07/17 04/07/17 Range/Units 05:47 12:11 16:57 WBC (3.8-10.6) k/uL Hgb (11.4-16.0) gm/dL Neutrophils # (1.3-7.7) k/uL Lymphocytes # (1.0-4.8) k/uL APTT (22.0-30.0) sec Sodium (137-145) mmol/L Chloride (98-107) mmol/L Carbon Dioxide (22-30) mmol/L BUN (7-17) mg/dL Glucose (74-99) mg/dL POC Glucose (mg/dL) 165 H 136 H (75-99) mg/dL Total Bilirubin (0.2-1.3) mg/dL Total Protein (6.3-8.2) g/dL Albumin (3.5-5.0) g/dL Procalcitonin 0.12 H (<=0.10) ng/mL 04/07/17 04/07/17 04/08/17 Range/Units 18:54 20:54 00:37 WBC (3.8-10.6) k/uL Hgb (11.4-16.0) gm/dL Neutrophils # (1.3-7.7) k/uL Lymphocytes # (1.0-4.8) k/uL APTT 20.0 L 117.4 H* (22.0-30.0) sec Sodium (137-145) mmol/L Chloride (98-107) mmol/L Carbon Dioxide (22-30) mmol/L BUN (7-17) mg/dL Glucose (74-99) mg/dL POC Glucose (mg/dL) 206 H (75-99) mg/dL Total Bilirubin (0.2-1.3) mg/dL Total Protein (6.3-8.2) g/dL Albumin (3.5-5.0) g/dL Procalcitonin (<=0.10) ng/mL 04/08/17 04/08/17 04/08/17 Range/Units 01:21 01:30 06:12 WBC 14.0 H (3.8-10.6) k/uL Hgb 11.2 L (11.4-16.0) gm/dL Neutrophils # 12.9 H (1.3-7.7) k/uL Lymphocytes # 0.5 L (1.0-4.8) k/uL APTT (22.0-30.0) sec Sodium 134 L (137-145) mmol/L Chloride 94 L (98-107) mmol/L Carbon Dioxide 35 H (22-30) mmol/L BUN 33 H (7-17) mg/dL Glucose 159 H (74-99) mg/dL POC Glucose (mg/dL) 160 H (75-99) mg/dL Total Bilirubin <0.1 L (0.2-1.3) mg/dL Total Protein 5.0 L (6.3-8.2) g/dL Albumin 2.7 L (3.5-5.0) g/dL Procalcitonin (<=0.10) ng/mL 04/08/17 Range/Units 08:25 WBC (3.8-10.6) k/uL Hgb (11.4-16.0) gm/dL Neutrophils # (1.3-7.7) k/uL Lymphocytes # (1.0-4.8) k/uL APTT 49.3 H (22.0-30.0) sec Sodium (137-145) mmol/L Chloride (98-107) mmol/L Carbon Dioxide (22-30) mmol/L BUN (7-17) mg/dL Glucose (74-99) mg/dL POC Glucose (mg/dL) (75-99) mg/dL Total Bilirubin (0.2-1.3) mg/dL Total Protein (6.3-8.2) g/dL Albumin (3.5-5.0) g/dL Procalcitonin (<=0.10) ng/mL Microbiology - Last 24 Hours (Table) 04/05/17 21:46 Blood Culture - Preliminary Blood No Growth after 48 hours Assessment and Plan Assessment: Assessment 1 stage IV adenocarcinoma of the lung 2 malignant right-sided pleural effusion, with some limited loculation status post Pleurx catheter placement. 200 mL of serosanguineous fluid was removed today. Chest x-ray shows improvement. 3 bulky cervical lymphadenopathy probably malignant causing some pain and possible some mass effect on the brachial plexus 4 A. fib RVR, rate is under better control on oral Cardizem 5 CHF 6 hypothyroidism 7 hypertension 8 morbid obesity 9 shortness of breath secondary to above, improving 10 right upper extremity DVT, currently on heparin. Plan: The patient was seen and evaluated by Dr. Wall. Her chest x-ray and labs were reviewed. She is improved and breathing easier status post Pleurx catheter placement. We'll continue with her current medications. Anticoagulation per primary care services in regard to the right upper extremity DVT. Her overall remains quite guarded based on the stage IV metastatic adenocarcinoma of the lung. We'll continue to follow. I, the cosigning physician, have performed a history and physical examination on the patient. Lung sounds crackles in the posterior bases more so on the right. Diminished.. Maintaining good O2 saturations in the 90s on 3 L/m per nasal cannula. I have discussed the assessment and plan of care with my nurse practitioner, Marta Kendall. I attest the above documented note as dictated by her.
[2017-04-08 11:36] LABS: Glucose,Whole Blood 207 mg/dL (75-99)
[2017-04-08] MEDS: HEPARIN SODIUM,PORCINE 25,000 UNIT in SODIUM CHLORIDE 0.9% 500 ML IV SCH (12:55)
[2017-04-08] MEDS: ASCORBIC ACID 500 MG TAB PO SCH (13:04)
--- NOTE | 2017-04-08 13:39 | P.PN ---
Subjective Progress Note Date: 04/08/17 (delayed charting patient seen at 0800) Principal diagnosis: shortness of breath Patient is an 82-year-old female recently discovered stage IV adenocarcinoma of the lung, A. fib, heart failure, and COPD who presented to the emergency department with progressively worsening dyspnea. She states that she was told she had lung cancer, but did not want a biopsy as she would not want chemo or radiation but states they told her was cancer after having a thoracentesis done approximately 2 months ago. She has been following with her primary care physician Dr. Geiger who helps her with alternative medications and is an M.D. but follows holistic medicine. She's been taking an unknown supplement for help with her cancer. She does wear 3 L nasal cannula at home and uses BiPAP. On arrival she was found to have A. fib with RVR at a rate of 106. In the emergency department she was found have an acute exacerbation of COPD and pleural effusion. She was started on bronchodilators and was admitted to the selective care unit for further monitoring and care. Pulmonary was consulted. They recommended possible Pleurx catheter placement and therefore consulted cardiac vascular surgery. She was also started on antibiotics, steroids, and scheduled bronchodilators for possible acute exacerbation of COPD. Her right upper extremity was swollen, venous doppler was peformed and showed DVT. Underwent placement of Pleurx catheter on 04/07 without complications. After surgery so started on a heparin drip. Arrangements are currently being looked at for oral anticoagulation therapy. Patient seen and examined at bedside. She states that her breathing is better. She complains of minimal amounts of pain at the Pleurx insertion site. She is anxious to go home this wanting to be trained on her Pleurx catheter. She denies overt chest pain. She denies nausea or vomiting. We discussed the fact that she will need a blood thinner. She is willing to try Xarelto, but is hesitant to look into Pradaxa. She is also unsure about Coumadin and she is very familiar with it. She tells me she takes aspirin as a blood thinner however we discussed the fact that she now has a blood clot and cancer and there is a chance that this could go to her lungs resulting in a significant pulmonary embolism. Objective - Vital Signs Vital signs: Vital Signs Temp 97 F L 04/08/17 08:00 Pulse 68 11/21/17 11:41 Resp 16 04/08/17 11:41 BP 109/56 04/08/17 08:00 Pulse Ox 99 04/08/17 08:00 Intake & Output 04/07/17 04/08/17 04/08/17 18:59 06:59 18:59 Intake Total 700 270.329 720 Output Total 901 175 600 Balance -201 95.329 120 Weight 88 kg Intake: IV 700 Intake, IV Titration 170.329 Amount Heparin Sodium,Porcine 25 170.329 ,000 unit In Sodium Chloride 0.9% 500 ml @ 18 UNITS/KG/HR 31.64 mls/hr IV .[id number] [facility] Rx#: [id number] Oral 0 100 720 Output: Urine 175 600 Pleural Fluid 900 Estimated Blood Loss 1 Other: Voiding Method Toilet # Voids 0 1 # Bowel Movements 0 - Exam General: non toxic, mild distress, appears at stated age Derm: warm, dry Head: atraumatic, normocephalic, symmetric Eyes: EOMI, no lid lag, anicteric sclera Mouth: no lip lesion, mucus membranes moist Cardiovascular: S1S2 irreg, no murmur, positive posterior tibial pulse bilateral , Lungs: decreased bs b/l, no rhonchi, no rales , no accessory muscle use Abdominal: soft, nontender to palpation, no guarding, no appreciable organomegaly Ext: no gross muscle atrophy, edema right hand, no contractures Neuro: CN II-XI grossly intact, no focal neuro deficits Psych: Alert, oriented, appropriate affect - Labs CBC & Chem 7: 04/08/17 01:30 04/08/17 01:21 Labs: Abnormal Lab Results - Last 24 Hours (Table) 04/06/17 04/07/17 04/07/17 Range/Units 05:47 16:57 18:54 WBC (3.8-10.6) k/uL Hgb (11.4-16.0) gm/dL Neutrophils # (1.3-7.7) k/uL Lymphocytes # (1.0-4.8) k/uL APTT 20.0 L (22.0-30.0) sec Sodium (137-145) mmol/L Chloride (98-107) mmol/L Carbon Dioxide (22-30) mmol/L BUN (7-17) mg/dL Glucose (74-99) mg/dL POC Glucose (mg/dL) 136 H (75-99) mg/dL Total Bilirubin (0.2-1.3) mg/dL Total Protein (6.3-8.2) g/dL Albumin (3.5-5.0) g/dL Procalcitonin 0.12 H (<=0.10) ng/mL 04/07/17 04/08/17 04/08/17 Range/Units 20:54 00:37 01:21 WBC (3.8-10.6) k/uL Hgb (11.4-16.0) gm/dL Neutrophils # (1.3-7.7) k/uL Lymphocytes # (1.0-4.8) k/uL APTT 117.4 H* (22.0-30.0) sec Sodium 134 L (137-145) mmol/L Chloride 94 L (98-107) mmol/L Carbon Dioxide 35 H (22-30) mmol/L BUN 33 H (7-17) mg/dL Glucose 159 H (74-99) mg/dL POC Glucose (mg/dL) 206 H (75-99) mg/dL Total Bilirubin <0.1 L (0.2-1.3) mg/dL Total Protein 5.0 L (6.3-8.2) g/dL Albumin 2.7 L (3.5-5.0) g/dL Procalcitonin (<=0.10) ng/mL 04/08/17 04/08/17 04/08/17 Range/Units 01:30 06:12 08:25 WBC 14.0 H (3.8-10.6) k/uL Hgb 11.2 L (11.4-16.0) gm/dL Neutrophils # 12.9 H (1.3-7.7) k/uL Lymphocytes # 0.5 L (1.0-4.8) k/uL APTT 49.3 H (22.0-30.0) sec Sodium (137-145) mmol/L Chloride (98-107) mmol/L Carbon Dioxide (22-30) mmol/L BUN (7-17) mg/dL Glucose (74-99) mg/dL POC Glucose (mg/dL) 160 H (75-99) mg/dL Total Bilirubin (0.2-1.3) mg/dL Total Protein (6.3-8.2) g/dL Albumin (3.5-5.0) g/dL Procalcitonin (<=0.10) ng/mL 04/08/17 Range/Units 11:32 WBC (3.8-10.6) k/uL Hgb (11.4-16.0) gm/dL Neutrophils # (1.3-7.7) k/uL Lymphocytes # (1.0-4.8) k/uL APTT (22.0-30.0) sec Sodium (137-145) mmol/L Chloride (98-107) mmol/L Carbon Dioxide (22-30) mmol/L BUN (7-17) mg/dL Glucose (74-99) mg/dL POC Glucose (mg/dL) 207 H (75-99) mg/dL Total Bilirubin (0.2-1.3) mg/dL Total Protein (6.3-8.2) g/dL Albumin (3.5-5.0) g/dL Procalcitonin (<=0.10) ng/mL Microbiology - Last 24 Hours (Table) 04/05/17 21:46 Blood Culture - Preliminary Blood No Growth after 48 hours Assessment and Plan Assessment: Recurrent malignant right-sided pleural effusion with stage IV adenocarcinoma lung s/p pleurx 04/07 -home health on discharge, had pleurx -Pain control -Await results from [facility] -Pulmonary recommendations -Patient does not want to meet with oncology Right upper extremity DVT -Currently on heparin therapy -Check Xarelto coverage as done by case management this morning, patient unable to pay $45 a month Acute on chronic hypoxic respiratory failure, acute resolved. -Continue with oxygen supplementation -Continue with BiPAP at night Acute exacerbation of COPD -Steroids, bronchodilators, antibiotics -Pulmonary recommendations appreciated Obesity with BMI 36.6 -Structured outpatient weight loss A. fib with rapid ventricular response -Heart rate is now controlled -Continue with Cardizem, metoprolol, to digoxin -Not on chronic anticoagulation -Aspirin Hypothyroidism -TSH decreased T 4 normal continue with [place] Thyroid - follow with PCP regarding decreasing this medication Compensated ingested heart failure, ejection fraction unknown -Continue with Aldactone, metoprolol, and Lasix DVT prophylaxis: Lovenox Discussed with: patient, nursing, case management Anticipated discharge: [address]: home with home health A total of 45 minutes was spent on the care of this complex patient more than 50 % of the time was spent in counseling and care coordination.
[2017-04-08] MEDS: HEPARIN SODIUM,PORCINE 25,000 UNIT in SODIUM CHLORIDE 0.45 % 500 ML IV SCH (14:48)
[2017-04-08 16:18] LABS: Glucose,Whole Blood 179 mg/dL (75-99)
[2017-04-08 20:46] LABS: Glucose,Whole Blood 165 mg/dL (75-99)
[2017-04-08] MEDS: AZITHROMYCIN 250 MG TAB PO SCH (20:58)
[2017-04-09] MEDS: ALPRAZolam 0.25 MG TAB PO SCH ×3 (00:10→14:39)
[2017-04-09] MEDS: IPRATROPIUM-ALBUTEROL 3 ML NEB INHALATION SCH ×3 (03:20→12:47)
[2017-04-09 06:09] LABS: Glucose,Whole Blood 153 mg/dL (75-99)
[2017-04-09 06:57] LABS: Basophils % (A) 0 %; CH 28.9; CHCM 31.4; Eosinophils % (A) 0 %; HCT 38.6 % (34.0-46.0); HDW 2.87; HGB 11.9 gm/dL (11.4-16.0); Hypochromasia Slight; Luc # (Auto) 0.03; Luc % (Auto) 0; Lymphocytes # (A) 0.3 k/uL (1.0-4.8); Lymphocytes % (A) 3 %; MCH 28.5 pg (25.0-35.0); MCHC 30.8 g/dL (31.0-37.0); MCV 92.5 fL (80.0-100.0); Mean Platelet Volume 8.4; Monocytes # (A) 0.5 k/uL (0-1.0); Monocytes % (A) 4 %; Neutrophils # (A) 11.4 k/uL (1.3-7.7); Neutrophils % (A) 93 %; RBC 4.18 m/uL (3.80-5.40); RDW 14.7 % (11.5-15.5); WBC 12.2 k/uL (3.8-10.6); WBC (Perox) 13.26
[2017-04-09] MEDS: THYROID, PORK 30 MG TAB PO SCH (06:58)
[2017-04-09] MEDS: INSULIN ASPART 100 UNIT/ML 1 ML 10 ML VIAL SQ SCH ×2 (06:59→12:30)
--- NOTE | 2017-04-09 08:10 | P.PN ---
Subjective Progress Note Date: 04/09/17 Principal diagnosis: Malignant right-sided pleural effusion. Recent diagnosis of metastatic adenocarcinoma of the lung. Recurrent pleural effusion, right sided thoracentesis performed 01/23/2017. History of COPD, diastolic congestive heart failure, chronic atrial fibrillation, hypothyroid, and previous tobacco dependence. 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 POD #2 right Pleurx catheter implant with fluoroscopy guidance. Currently sitting up in bed in no acute distress. Denies pain, shortness of breath. No new complaints. Had Pleurx catheter drained yesterday for 200 mL of fluid. Objective - Vital Signs Vital signs: Vital Signs Temp 96.0 F L 04/09/17 04:00 Pulse 66 04/09/17 04:00 Resp 17 04/09/17 04:00 BP 136/83 04/09/17 04:00 Pulse Ox 96 04/09/17 04:00 Intake & Output 04/08/17 04/09/17 04/09/17 18:59 06:59 18:59 Intake Total 1080 540 Output Total 600 200 Balance 480 340 Weight 89.2 kg Intake: IV 240 0.9 240 Oral 1080 300 Output: Urine 600 200 Other: Voiding Method Toilet # Voids 1 - Constitutional General appearance: Present: cooperative, no acute distress, obese - Respiratory Details: Lungs sounds diminished bilaterally with coarse breath sounds in the bases. Respirations even, nonlabored. Currently on 3 L nasal cannula with oxygen saturation 96%. Right Pleurx catheter present, capped, dressing secure. Chest x-ray reviewed, right pleural effusion still present but better aeration than yesterday. - Cardiovascular Details: S1, S2 present. Irregular rate and rhythm, atrial fibrillation on telemetry. Palpable peripheral pulses bilaterally. Trace bilateral lower extremity edema present, right arm edema present. SCDs present. - Gastrointestinal Gastrointestinal Comment(s): Abdomen soft, nontender, nondistended. Active bowel sounds 4 quadrants. Tolerating diet. - Genitourinary Genitourinary Comment(s): Patient continues to void. - Neurologic Neurologic: Present: CNII-XII intact - Musculoskeletal Musculoskeletal: Present: gait normal, strength equal bilaterally - Psychiatric Psychiatric: Present: A&O x's 3, appropriate affect, intact judgment & insight - Allied health notes Allied health notes reviewed: nursing - Labs CBC & Chem 7: 04/09/17 05:57 04/08/17 01:21 Labs: Abnormal Lab Results - Last 24 Hours (Table) 04/08/17 04/08/17 04/08/17 Range/Units 08:25 11:32 16:16 WBC (3.8-10.6) k/uL MCHC (31.0-37.0) g/dL Neutrophils # (1.3-7.7) k/uL Lymphocytes # (1.0-4.8) k/uL APTT 49.3 H (22.0-30.0) sec POC Glucose (mg/dL) 207 H 179 H (75-99) mg/dL 04/08/17 04/09/17 04/09/17 Range/Units 20:44 05:57 05:57 WBC 12.2 H (3.8-10.6) k/uL MCHC 30.8 L (31.0-37.0) g/dL Neutrophils # 11.4 H (1.3-7.7) k/uL Lymphocytes # 0.3 L (1.0-4.8) k/uL APTT 48.3 H (22.0-30.0) sec POC Glucose (mg/dL) 165 H (75-99) mg/dL 04/09/17 Range/Units 06:02 WBC (3.8-10.6) k/uL MCHC (31.0-37.0) g/dL Neutrophils # (1.3-7.7) k/uL Lymphocytes # (1.0-4.8) k/uL APTT (22.0-30.0) sec POC Glucose (mg/dL) 153 H (75-99) mg/dL Microbiology - Last 24 Hours (Table) 04/05/17 21:46 Blood Culture - Preliminary Blood No Growth after 72 hours - Imaging and Cardiology Chest x-ray: image reviewed Assessment and Plan (1) Acute exacerbation of chronic obstructive airways disease Current Visit: Yes Status: Acute Code(s): J44.1 - CHRONIC OBSTRUCTIVE PULMONARY DISEASE W (ACUTE) EXACERBATION SNOMED Code(s): 194915277 (2) Atrial fibrillation Current Visit: Yes Status: Chronic Code(s): I48.91 - UNSPECIFIED ATRIAL FIBRILLATION SNOMED Code(s): 68815398 (3) COPD (chronic obstructive pulmonary disease) Current Visit: Yes Status: Chronic Code(s): J44.9 - CHRONIC OBSTRUCTIVE PULMONARY DISEASE, UNSPECIFIED SNOMED Code(s): 53919948 (4) Hypothyroid Current Visit: Yes Status: Chronic Code(s): E03.9 - HYPOTHYROIDISM, UNSPECIFIED SNOMED Code(s): 58056472 (5) Lung cancer Current Visit: Yes Status: Chronic Code(s): C34.90 - MALIGNANT NEOPLASM OF UNSP PART OF UNSP BRONCHUS OR LUNG SNOMED Code(s): 031310236 (6) Pleural effusion Current Visit: Yes Status: Acute Code(s): J90 - PLEURAL EFFUSION, NOT ELSEWHERE CLASSIFIED SNOMED Code(s): 53169634 Plan: 1. Will drain Pleurx catheter tomorrow. We will reinforced teaching regarding Pleurx drainage. 2. Bronchodilators, steroids, BiPAP management per pulmonology services. 3. Antibiotics, medical management per primary care services. 4. Right arm DVT being treated with heparin drip with plans for transition to oral anticoagulation per primary care service. GI prophylaxis with Pepcid. 5. Increase activity as tolerated. 6. More recommendations as patient progresses. May discharge to home from our standpoint whenever okay with primary service. Please have patient call in drainage amounts to cardiothoracic surgery office weekly to determine appropriateness for removal of Pleurx catheter. Time with Patient: Greater than 30
--- NOTE | 2017-04-09 08:37 | XR ---
EXAMINATION TYPE: XR chest 2V DATE OF EXAM: 04/09/2017 COMPARISON: Prior chest x-ray 04/08/2017 HISTORY: Pleural catheter placement TECHNIQUE: Frontal and lateral views of the chest are obtained. FINDINGS: Findings are similar to previous exam. Right-sided pleural catheter is in place. Right upp er lobe lung mass noted. No pneumothorax. Increased density at the right lung base obscures the right heart border. IMPRESSION: Stable findings. Pleural effusion and associated atelectasis. Right upper lobe lung. Med iastinal adenopathy.
[2017-04-09] MEDS: SYMBICORT 160-4.5 MCG INHALER INHALATION SCH (08:47)
[2017-04-09] MEDS: ASPIRIN 325 MG TAB PO SCH (09:03)
[2017-04-09] MEDS: DIGOXIN 125 MCG TAB PO SCH (09:04)
[2017-04-09] MEDS: DILTIAZEM CD 300 MG CAP.ER.24H PO SCH (09:05)
[2017-04-09] MEDS: FUROSEMIDE 40 MG TAB PO SCH (09:05)
[2017-04-09] MEDS: FAMOTIDINE 20 MG TAB PO SCH (09:05)
[2017-04-09] MEDS: METOPROLOL TARTRATE 25 MG TAB PO SCH (09:06)
[2017-04-09] MEDS: methylPREDNISolone SOD SUCCI 40 MG/ML 1 ML VIAL IV SCH (09:06)
[2017-04-09] MEDS: SPIRONOLACTONE 25 MG TAB PO SCH (09:07)
[2017-04-09] MEDS: LIDOCAINE 5% PATCH TOPICAL SCH (10:48)
[2017-04-09] MEDS ORDERED: RX INFO: IV CONTRAST WAS GIVEN 1 EACH MISC MISCELLANE PRN (11:48)
[2017-04-09 12:19] LABS: Glucose,Whole Blood 183 mg/dL (75-99)
--- NOTE | 2017-04-09 14:35 | P.DS ---
Providers Date of admission: 04/05/17 18:34 Expected date of discharge: 04/09/17 Attending physician: Ciera Zhang MD Consults: 04/05/17 18:33 Consult Physician Urgent Consulting Provider: Kendall Irving Consult Reason/Comments: plurex catheter placement Do you want consulting provider notified?: Yes, Notify in am 04/07/17 08:46 Consult Physician Routine Consulting Provider: Ivory Wall Consult Reason/Comments: pleural effusion Do you want consulting provider notified?: Already Contacted Primary care physician: Vernell Plummer - Discharge Diagnosis(es) (1) Acute and chronic respiratory failure with hypoxia Current Visit: Yes Status: Acute (2) Pleural effusion, malignant Current Visit: Yes Status: Resolved (3) Stage IV adenocarcinoma of lung Current Visit: Yes Status: Chronic (4) Acute exacerbation of chronic obstructive airways disease Current Visit: Yes Status: Acute (5) Hypertension Current Visit: Yes Status: Acute (6) Morbid obesity Current Visit: Yes Status: Acute Hospital Course: Patient is an 82-year-old female recently discovered stage IV adenocarcinoma of the lung, A. fib, heart failure, and COPD who presented to the emergency department with progressively worsening dyspnea. She states that she was told she had lung cancer, but did not want a biopsy as she would not want chemo or radiation but states they told her was cancer after having a thoracentesis done approximately 2 months ago- Dr. Wall states adenocarcinoma . She has been following with her primary care physician Dr. Geiger who helps her with alternative medications and is an M.D. but follows holistic medicine. She's been taking an unknown immunotherapy for help with her cancer. She does wear 3 L nasal cannula at home and uses BiPAP. On arrival she was found to have A. fib with RVR at a rate of 106. In the emergency department she was found have an acute exacerbation of COPD and pleural effusion. She was started on bronchodilators and was admitted to the selective care unit for further monitoring and care. Pulmonary was consulted. They recommended possible Pleurx catheter placement and therefore consulted cardiac vascular surgery. She was also started on antibiotics, steroids, and scheduled bronchodilators for possible acute exacerbation of COPD. Her right upper extremity was swollen, venous doppler was peformed and showed DVT. Underwent placement of Pleurx catheter on 04/07 without complications. After surgery so started on a heparin drip. She does not want to take Coumadin due to knowing about Coumadin with other acquaintances or Lovenox due to its injection. She was open to novel oral anticoagulant. We are able to provide her with a prescription card for free 30 days of Xareto. Her co-pay will be $ 47 which would be cost prohibitive for her, I have provided her with the patient assistance packet to fill out but she will need part of it filled out by her primary care provider. I discussed this with her son. Initially I had ordered a head CT at to rule out metastatic disease as the patient has had increasing difficulty with word finding and memory. Patient adamantly refuses any chemo or radiation and does not see the benefit of having a head CT obtained , pulmonary critical care is in agreement with this. Therefore CT of the brain was canceled. She wishes to discuss her use of blood thinner with Dr. Geiger. I have encouraged her to do so and they can make a long-term decision together though I recommended her staying on blood thinners until that point in time. I did discuss with her the options of hospice or palliative care issues not want to pursue traditional treatment and has been getting weaker and more short of breath, however she is not interested in those at this point in time. I did provide the son with information on [facility]. She was given teaching on use of her Pleurx catheter. She also continued to be followed by home care. She will report her catheter output to Dr. Read's office and they will help determine when and if the Pleurx catheter can be removed. This was discussed with the patient. Her son was made aware of her overall poor prognosis, patient is also aware of her poor prognosis. She was currently in stable condition and wishing to go home and was subsequently discharged. She will follow up with her primary care physician and Dr. Wall. Patient seen and examined at bedside. Shortness of breath improved. Word finding difficulties and difficulties with memory. No nausea, vomiting, or diarrhea. Wants to go home today. Vital signs reviewed and stable. General: non toxic, no distress, appears at stated age, obese Derm: warm, dry Head: atraumatic, normocephalic, symmetric Eyes: EOMI, no lid lag, anicteric sclera Mouth: no lip lesion, mucus membranes moist Cardiovascular: S1S2 reg, no murmur, positive posterior tibial pulse bilateral, Lungs: Rhonchi and rales bilaterally , no accessory muscle use Abdominal: soft, nontender to palpation, no guarding, no appreciable organomegaly Ext: no gross muscle atrophy, no edema, no contractures Neuro: CN II-XI grossly intact, no focal neuro deficits Psych: Alert, oriented, appropriate affect A total of 45 minutes of time were spent preparing this complex discharge summary . Pertinent Studies: Large upper lobe 5 cm round mass with additional mass in the anterior right upper lobe adjacent to the mediastinum, enlarged multiple anterior mediastinal lymph nodes up to 3 cm, enlarged subcarinal lymph nodes 3 cm, enlarged right bronchial lymph nodes, mass like infiltrate in the anterior right upper lobe consistent with tumor, right pleural effusion Procedures: Pleurx catheter insertion on 04/07 Patient Condition at Discharge: Stable Plan - Discharge Summary New Discharge Prescriptions: New Azithromycin [Zithromax] 250 mg PO HS #3 tab Rivaroxaban [Xarelto Starter Pack] 1 each PO DIRECTED #1 tab predniSONE 60 mg PO DAILY #15 tab HYDROcodone/APAP 5-325MG [[place] 5] 1 each PO Q4HR PRN #45 tab PRN Reason: Pain Continue Thyroid,Pork [[place] Thyroid] 60 mg PO DAILY Spironolactone [Aldactone] 25 mg PO DAILY Fluticasone/Vilanterol [Breo Ellipta 200-25 Mcg INH] 1 puff INHALATION RT- DAILY Metoprolol Tartrate [Lopressor] 25 mg PO BID Furosemide [Lasix] 40 mg PO BID Famotidine 20 mg PO DAILY Diltiazem HCl [Diltiazem 24Hr ER] 300 mg PO DAILY Digoxin [Digitek] 125 mcg PO DAILY Ascorbic Acid [Vitamin C] 500 mg PO DAILY Ipratropium-Albuterol Nebulize [Duoneb 0.5 mg-3 mg/3 ml Soln] 3 ml INHALATION RT-Q4H Alpha Lipoic Acid 100 mg PO BID ALPRAZolam [Xanax] 0.25 mg PO Q6HR Lidocaine 5% Patch [Lidoderm 5% Patch] 1 patch TOPICAL DAILY Albuterol Inhaler [Ventolin Hfa Inhaler] 1 - 2 puff INHALATION RT-Q4H PRN PRN Reason: Shortness Of Breath Discontinued Aspirin 325 mg PO DAILY Discharge Medication List ALPRAZolam [Xanax] 0.25 mg PO Q6HR 04/05/17 [History] Albuterol Inhaler [Ventolin Hfa Inhaler] 1 - 2 puff INHALATION RT-Q4H PRN [History] Alpha Lipoic Acid 100 mg PO BID 04/05/17 [History] Ascorbic Acid [Vitamin C] 500 mg PO DAILY 04/05/17 [History] Digoxin [Digitek] 125 mcg PO DAILY 04/05/17 [History] Diltiazem HCl [Diltiazem 24Hr ER] 300 mg PO DAILY 04/05/17 [History] Famotidine 20 mg PO DAILY 04/05/17 [History] Fluticasone/Vilanterol [Breo Ellipta 200-25 Mcg INH] 1 puff INHALATION RT-DAILY 04/05/17 [History] Furosemide [Lasix] 40 mg PO BID 04/05/17 [History] Ipratropium-Albuterol Nebulize [Duoneb 0.5 mg-3 mg/3 ml Soln] 3 ml INHALATION RT -Q4H 04/05/17 [History] Lidocaine 5% Patch [Lidoderm 5% Patch] 1 patch TOPICAL DAILY 04/05/17 [History] Metoprolol Tartrate [Lopressor] 25 mg PO BID 04/05/17 [History] Spironolactone [Aldactone] 25 mg PO DAILY 04/05/17 [History] Thyroid,Pork [[place] Thyroid] 60 mg PO DAILY 04/05/17 [History] Azithromycin [Zithromax] 250 mg PO HS #3 tab 04/09/17 [Rx] HYDROcodone/APAP 5-325MG [[place] 5] 1 each PO Q4HR PRN #45 tab 04/09/17 [Rx] Rivaroxaban [Xarelto Starter Pack] 1 each PO DIRECTED #1 tab 04/09/17 [Rx] predniSONE 60 mg PO DAILY #15 tab 04/09/17 [Rx] Follow up Appointment(s)/Referral(s): Vernell Plummer MD [Primary Care Provider] - 1-2 days Ivory Wall MD [STAFF PHYSICIAN] - 1 Week Activity/Diet/Wound Care/Special Instructions: [facility]: [phone] Please have patient/home care call in Pleurx catheter drainage amounts weekly to the cardiothoracic surgery office at [phone] or fax amounts to [phone]. regular diet, activity as tolerated. Continue with oxygen during the day and bipap at night. Remember to file your [employer] assistance program papers. Discharge Disposition: HOME WITH HOME HEALTH SERVICES
[2017-04-09] MEDS: HEPARIN SODIUM,PORCINE 25,000 UNIT in SODIUM CHLORIDE 0.45 % 500 ML IV SCH (14:40)
[2017-04-09] MEDS: ASCORBIC ACID 500 MG TAB PO SCH (14:42)
[2017-04-09 15:06] VITALS: BP 154/89; PULSE 96; RESP 18; TEMP 97
--- NOTE | 2017-04-09 15:34 | P.PN ---
Subjective Progress Note Date: 04/09/17 Principal diagnosis: Stage IV adenocarcinoma of the lung with malignant right-sided pleural effusion This is a 82-year-old female patient was hospitalized because of progressive worsening shortness of breath. 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 The patient was seen at [facility] and a thoracentesis was done back in January 2017 and the pleural fluid cytology was positive for adenocarcinoma of the lung. The patient declined receiving any treatment back then for this new diagnosis. Over the past 2-3 months, the patient was about to make an appointment with me for further planning and she end up in the hospital yesterday because of worsening shortness of breath, and same time the patient was found to be in atrial fibrillation with rapid ventricular response. She is also complaining of pain along the right upper neck area as the patient has firm lymphadenopathy within the supraclavicular area and this is probably invading the brachial plexus. Right upper extremities also swollen. No significant cough or sputum production. No hemoptysis. No chest pain. Computed tomography scan of the chest was done and showed a large right upper lobe mass measuring 5 cm in size in addition to extensive lymphadenopathy along the mediastinum with multiple enlarged anterior mediastinal lymph nodes measuring up to 3 cm in size and another 3 cm lymph node and subcarinal area. There is also an enlarged right bronchial lymph nodes anteriorly. There is also atelectasis in the right lower lobe. Left lung is clear. There is pleural effusion on the right which is somewhat loculated. The patient was being considered for Pleurx catheter insertion regarding the recurrent right- sided pleural effusion and for that reason a cardiothoracic consultation was requested. Meanwhile, the patient is much more comfortable on today's evaluation. Heart rate has slowed down. No symptoms of shortness of breath at rest. She is able to speak Full sentences. On 03/21/2017 patient is seen in follow-up on soft Floor. She currently on 2 L oxygen per nasal cannula with O2 sat at 96%. She denies any dyspnea, Pleurx catheter was placed 04/08/2017. Patient had drained 900 mL of pleural fluid when he was placed initially on 04/08/2017, no further drainage was. She was found to have a right upper extremity DVT subclavian, axillary and basilic veins. She was initiated on heparin drip. Blood thinners were discussed with her, she initially declined Coumadin, declined Ellik was because of the cost. Upon further discussion she had agreed to go home on Xarelto. She does continue to decline any treatment for her lung cancer. She is anxious to go home and from pulmonary standpoint she is stable for discharge home. Follow-up Dr. Wall in the office and 7-10 days. Objective - Vital Signs Vital signs: Vital Signs Temp 97 F L 04/09/17 15:05 Pulse 96 04/09/17 15:05 Resp 18 04/09/17 15:05 BP 154/89 04/09/17 15:05 Pulse Ox 96 04/09/17 15:05 Intake & Output 04/08/17 04/09/17 04/09/17 18:59 06:59 18:59 Intake Total 1080 540 956.28 Output Total 600 200 Balance 480 340 956.28 Weight 89.2 kg Intake: IV 240 0.9 240 Intake, IV Titration 456.28 Amount Heparin Sodium,Porcine 25 456.28 ,000 unit In Sodium Chloride 0.45 % 500 ml @ 18 UNITS/KG/HR 31.64 mls/ hr IV .[id number] [facility] Rx#: [id number] Oral 1080 300 500 Output: Urine 600 200 Other: Voiding Method Toilet Toilet # Voids 1 - Exam Head exam was generally normal. There was no scleral icterus or corneal arcus. Mucous membranes were moist. Neck is short and supple and the patient has significant crowding of the posterior oropharynx. The patient has firm and irregular lymphadenopathy in the right supraclavicular area which is quite tender to palpation. Lungs sounds are diminished in the right lung base along with some dullness to percussion. Otherwise normal.Cardiac exam revealed the PMI to be normally situated and sized. The rhythm was regular and no extrasystoles were noted during several minutes of auscultation. The first and second heart sounds irregular secondary to atrial fibrillation and physiologic splitting of the second heart sound was noted. There were no murmurs, rubs, clicks, or gallops.Abdominal exam revealed normal bowel sounds. The abdomen was soft, non-tender, and without masses, organomegaly, or appreciable enlargement of the abdominal aorta. Extremities show some swelling in the right upper extremity compared to the left yet there is adequate motor function in all 4 extremities with normal sensation. No cyanosis or clubbing at this point.Examination of the skin revealed no evidence of significant rashes, suspicious appearing nevi or other concerning lesions. Neurologically the patient is awake and alert and there is no focal neurological deficit this point - Labs CBC & Chem 7: 04/09/17 05:57 04/08/17 01:21 Labs: Abnormal Lab Results - Last 24 Hours (Table) 04/08/17 04/08/17 04/09/17 Range/Units 16:16 20:44 05:57 WBC 12.2 H (3.8-10.6) k/uL MCHC 30.8 L (31.0-37.0) g/dL Neutrophils # 11.4 H (1.3-7.7) k/uL Lymphocytes # 0.3 L (1.0-4.8) k/uL APTT (22.0-30.0) sec POC Glucose (mg/dL) 179 H 165 H (75-99) mg/dL 04/09/17 04/09/17 04/09/17 Range/Units 05:57 06:02 12:07 WBC (3.8-10.6) k/uL MCHC (31.0-37.0) g/dL Neutrophils # (1.3-7.7) k/uL Lymphocytes # (1.0-4.8) k/uL APTT 48.3 H (22.0-30.0) sec POC Glucose (mg/dL) 153 H 183 H (75-99) mg/dL Microbiology - Last 24 Hours (Table) 04/05/17 21:46 Blood Culture - Preliminary Blood No Growth after 72 hours Assessment and Plan Plan: Assessment 1 stage IV adenocarcinoma of the lung 2 malignant right-sided pleural effusion, with some limited loculation 3 bulky cervical lymphadenopathy probably malignant causing some pain and possible some mass effect on the brachial plexus 4 A. fib RVR, rate is under better control on oral Cardizem 5 CHF 6 hypothyroidism 7 hypertension 8 morbid obesity 9 shortness of breath secondary to above, improving 10 right arm DVT in the subclavian vein, axillary vein and basilic vein. Was initiated on heparin drip, is being discharged home on Xarelto Plan Long-term prognosis poor based on stage IV metastatic adenocarcinoma of the lung. She is doing well, denies any worsening dyspnea. Chest x-ray from [address] Wall. Shows right upper lobe mass stable in appearance, pleural effusion and associated atelectasis. Pleurx catheter is in place. Patient has gone home and instructions to care Continue same treatment for now. Patient had initially declined any anticoagulation for the right arm DVT, however. Further discussion had agreed to go home on Xarelto. Continue bronchodilators. Patient stable for discharge home, follow-up Dr. Wall in 1 week I performed a history & physical examination of the patient and discussed their management with my nurse practitioner, Joy Dhaliwal. I reviewed the nurse practitioner's note and agree with the documented findings and plan of care. Lung sounds are clear, diminished on the right. The findings and the impression was discussed with the patient. I attest to the documentation by the nurse practitioner. Time with Patient: Less than 30
== END 2017-04-09 17:12 | disposition home health service (06) | DRG 180 ==
LOC: EC 16:09 → 6SEL 18:34
PROVIDERS: ADMIT Internal Medicine; ATTEND Internal Medicine
PROC: 0B9N30Z Drainage of Right Pleura with Drainage Device, Percutaneous Approach (ICD-10-PCS; principal; 2017-04-07 18:45)
DX: C34.90 Malignant neoplasm of unspecified part of unspecified bronchus or lung (principal); J18.9 Pneumonia, unspecified organism; J96.21 Acute and chronic respiratory failure with hypoxia; J91.0 Malignant pleural effusion; I11.0 Hypertensive heart disease with heart failure; J44.0 Chronic obstructive pulmonary disease with (acute) lower respiratory infection; I48.1 Persistent atrial fibrillation; I50.32 Chronic diastolic (congestive) heart failure; I82.721 Chronic embolism and thrombosis of deep veins of right upper extremity; I82.A21 Chronic embolism and thrombosis of right axillary vein; I82.B21 Chronic embolism and thrombosis of right subclavian vein; J44.1 Chronic obstructive pulmonary disease with (acute) exacerbation; E66.01 Morbid (severe) obesity due to excess calories; E03.9 Hypothyroidism, unspecified; I48.2 Chronic atrial fibrillation; Z68.36 Body mass index [BMI] 36.0-36.9, adult; Z79.82 Long term (current) use of aspirin; Z79.899 Other long term (current) drug therapy; Z82.49 Family history of ischemic heart disease and other diseases of the circulatory system; Z82.5 Family history of asthma and other chronic lower respiratory diseases; Z83.3 Family history of diabetes mellitus; Z87.891 Personal history of nicotine dependence; Z99.81 Dependence on supplemental oxygen; Z88.1 Allergy status to other antibiotic agents; Z91.012 Allergy to eggs
CPT/HCPCS: 36415; 71010; 71020; 71250; 80048; 80053; 80162; 82550; 82553; 83735; 83880; 84100; 84145; 84439; 84443; 84484; 85025; 85027; 85610; 85730; 87040; 93005; 94640; 94660; 94760; 96374; 99285